=== PATIENT | female | born 1990 | race Caucasian/White ===

== ENCOUNTER 2017-12-25 17:58 | Inpatient (IN) | payer SELFPAY ==
[2017-12-25] MEDS ORDERED: NS 0.9% 1000 ML*IV.FLUID IV ONE (18:50)
--- NOTE | 2017-12-25 19:06 | ED ---
Abdominal Pain/Female - HPI Summary HPI Summary: The pt is a 27 y.o female presenting to the [facility] with a chief complaint of vomiting. The pt is accompanied by her /parents. Her parents report that the pt has vomited multiple times, fatigue, weakness, has intermittent tingling in her left leg, and, at times, numbness that makes her unable to walk. Pt has been taking ibuprofen and Tylenol in order to alleviate pain daily. Her parents state in the triage report that the pt has been unable to eat since () and that the pt fell out of bed causing bruising to the left side of the face. Pt has a pale appearance and the onset of the symptoms were reported to be days ago (Early 12/22/17). Symptoms alleviated by nothing and aggravated by nothing. She also complains of vague abdominal pain. - History of Current Complaint Chief Complaint: EDGeneral Stated Complaint: VOMITING, TINGLING IN LT LEG Time Seen by Provider: 12/25/17 18:15 Hx Obtained From: Patient Hx Last Menstrual Period: IMPLANON Onset/Duration: Gradual Onset, Lasting Days - Since 12/22/17, Still Present Timing: Constant Pain Intensity: 0 Pain Scale Used: 0-10 Numeric Aggravating Factor(s): Nothing Alleviating Factor(s): Nothing Associated Signs and Symptoms: Positive: Decreased Appetite, Vomiting, Other: - Tingling in the left leg; Numbness that makes her unable to walk Allergies/Adverse Reactions: Allergies Allergy/AdvReac Type Severity Reaction Status Date / Time penicillin G Allergy Vomiting Verified 12/25/17 18:31 Home Medications: Home Medications Lamictal 200 mg PO DAILY 12/25/17 [History Confirmed 12/25/17] PMH/Surg Hx/FS Hx/Imm Hx Endocrine/Hematology History: Reports: Hx Anemia Denies: Hx Diabetes, Hx Thyroid Disease Cardiovascular History: Denies: Hx Hypertension, Hx Pacemaker/ICD Respiratory History: Reports: Hx Asthma - Exercise Induced, Hx Chronic Bronchitis Denies: Hx Chronic Obstructive Pulmonary Disease (COPD) GI History: Reports: Hx Gastroesophageal Reflux Disease Denies: Hx Ulcer History: Reports: Hx Kidney Infection Musculoskeletal History: Reports: Hx Arthritis, Hx Back Problems Sensory History: Reports: Hx Contacts or Glasses Denies: Hx Hearing Aid Opthamlomology History: Reports: Hx Contacts or Glasses Neurological History: Reports: Hx Headaches, Hx Migraine, Other Neuro Impairments/Disorders - PAIN CLINIC PT Psychiatric History: Reports: Hx Anxiety, Hx Attention Deficit Hyperactivity Disorder, Hx Depression, Hx Post Traumatic Stress Disorder, Hx Bipolar Disorder , Hx Suicide Attempt, Hx of Violent Episodes Against Others Denies: Hx Panic Disorder - Surgical History Surgery Procedure, Year, and Place: CYST REMOVED FROM RT WRI[facility];. NEXPLANON ( [place]) MRI SAFE UPTO 3T PER 3FLOZ; Infectious Disease History: Yes Infectious Disease History: Denies: Hx Hepatitis, Hx Human Immunodeficiency Virus (HIV), Traveled Outside the [place] in Last 30 Days - Family History Known Family History: Positive: Cardiac Disease, Diabetes - Social History Alcohol Use: None Alcohol Amount: IN RECOVERY Substance Use Type: Reports: None Substance Use Comment - Amount & Last Used: hx heroin addiction Smoking Status (MU): Former Smoker Type: Cigarettes Amount Used/How Often: Using Nicotene Patch Length of Time of Smoking/Using Tobacco: 5 years Have You Smoked in the Last Year: Yes Review of Systems Constitutional: Other - Pale Positive: Fatigue Eyes: Negative ENT: Negative Cardiovascular: Negative Respiratory: Negative Positive: Abdominal Pain, Vomiting Musculoskeletal: Negative Positive: Bruising - Left side of the face Neurological: Other - Tingling in the left leg Positive: Weakness, Numbness Psychological: Normal All Other Systems Reviewed And Are Negative: Yes Physical Exam - Summary Physical Exam Summary: Appearance: The patient is well-nourished in no acute distress and in no acute pain. Skin: The skin is warm and dry and skin color reflects adequate perfusion. HEENT: The head is normocephalic and atraumatic. The conjunctivae are clear and without drainage. Nares are patent and without drainage. mucous membranes dry; Pupils are 1 mm bilaterally Neck: The neck is supple with full range of motion and non-tender. There are no carotid bruits. There is no neck vein distension. Respiratory: Chest is non-tender. Lungs are clear to auscultation and breath sounds are symmetrical and equal. Cardiovascular: Tachydcardic. There is no murmur or rub auscultated. Abdomen: The abdomen is soft and non-tender. There are normal bowel sounds heard in all four quadrants and there is no organomegaly palpated. Musculoskeletal: There is no back tenderness noted. Extremities are non-tender with full range of motion. There is good capillary refill. There is no peripheral edema or calf tenderness elicited. Neurological: Patient is alert and oriented to person, place and time. The patient has symmetrical motor strength in all four extremities. Cranial nerves are grossly intact. Deep tendon reflexes are symmetrical and equal in all four extremities. Psychiatric: The patient has an appropriate affect and does not exhibit any anxiety or depression. Triage Information Reviewed: Yes Vital Signs On Initial Exam: Initial Vitals Temp Pulse Resp BP Pulse Ox 95.8 F 0 16 100/56 0 12/25/17 17:59 12/25/17 17:59 12/25/17 17:59 12/25/17 17:59 12/25/17 17:59 Vital Signs Reviewed: Yes Diagnostics - Vital Signs Vital Signs Temp Pulse Resp BP Pulse Ox 12/25/17 18:38 18 117/76 12/25/17 18:14 24 12/25/17 17:59 95.8 F 0 16 100/56 0 - Laboratory Result Diagrams: 12/25/17 19:30 12/25/17 19:30 Lab Statement: Any lab studies that have been ordered have been reviewed, and results considered in the medical decision making process. - Radiology Chest X-ray Radiology Interpretation Completed By: ED Physician - Chest X-ray reveals no acute processes as per ED Physician Abdominal Pain Fem Course/Dx - Course Course Of Treatment: Ms. Dalton presented to the emergency department for complaint that she been vomiting essentially for about 36 hours. She also complained of some vague abdominal pain which started after the vomiting. She looked quite ill on presentation, she was tachycardic and pale. Her pressure was okay with a systolic over 100. She was afebrile. My initial consideration was that she was severely dehydrated. And she was given 30 cc/kg normal saline IV immediately. Labs are somewhat difficult to obtain pulmonary came back she was noted to have a lactic acid of 8 and a leukocytosis of 22. At that point vancomycin and cefepime were ordered for her as well as additional fluid. She did improve with the fluid and looked much better although she remained tachycardic. The more labs came back the more revealed that she had severe sepsis with elevated liver enzymes, elevated kidney function, hyponatremia and hyperkalemia. By that point Dr. Rdz was consulted and agreed to admit her to the ICU. She requested CT scan of her abdomen as well as lumbar spine. Immediately upon arrival back from CT I was called into the room and found the patient with a wide complex bradycardia on the monitor although her pulse was much faster and she was interactive. At one point she began to exhibit seizure- like activity and became unresponsive and an ABC alert was called at that point. CPR was initiated. She was given epi and atropine and regained a pulse. She continued to be unresponsive at that point and was intubated. She was given glucose and insulin for her hyperkalemia and transported to the intensive care unit. The CT scan revealed an ileus versus a small bowel obstruction. - Diagnoses Provider Diagnoses: Severe sepsis - Critical Care Time Critical Care Time: 30-74 min Discharge - Sign-Out/Discharge Documenting (check all that apply): Patient Departure - Discharge Plan Condition: Guarded Disposition: ADMITTED TO [facility] - Billing Disposition and Condition Condition: GUARDED Disposition: Admitted to [facility] - Attestation Statements Document Initiated by Scribe: Yes Documenting Scribe: Antony Cooper Provider For Whom Scribe is Documenting (Include Credential): Hunter Alvarez Scribe Attestation: Antony Carlos, scribed for Hunter Alvarez on 12/25/17 at 2254. Scribe Documentation Reviewed: Yes Provider Attestation: The documentation as recorded by the Antony casey accurately reflects the service I personally performed and the decisions made by Hunter hitchcock
[2017-12-25] MEDS ORDERED: Ondansetron INJ* 2 MG/ML VIAL IV ONE (19:25)
[2017-12-25 19:45] LABS: Hematocrit 45 % (35-47); Hemoglobin 14.7 g/dl (12.0-16.0); Mean Corpuscular HGB Conc 33 g/dl (31-36); Mean Corpuscular Hemoglobin 30 pg (27-31); Mean Corpuscular Volume 93 fL (80-97); Mean Platelet Volume 7.9 fL (7.4-10.4); Platelet Count 303 10^3/ul (150-450); Red Blood Count 4.85 10^6/ul (4.00-5.40); Red Cell Distribution Width 14 % (10.5-15); White Blood Count 24.1 10^3/ul (3.5-10.8)
[2017-12-25 19:50] LABS: INR 1.08 (0.77-1.02)
[2017-12-25 20:01] LABS: EGFR Non-African American 15.8 (>60)
[2017-12-25] MEDS ORDERED: Cefepime(*) 1 GM in NS 0.9% 50 ML* 50 ML IVPB ONE (20:07)
[2017-12-25] MEDS ORDERED: Vancomycin(*) 1,000 MG in NS 0.9% 250 ML* 250 ML IVPB ONE (20:07)
[2017-12-25 20:10] LABS: ABS Basophils 0 10^3/ul (0-0.2); ABS Eosinophils 0 10^3/ul (0-0.6); ABS Lymphocytes 1.5 10^3/ul (1.0-4.8); ABS Monocytes 1.4 10^3/ul (0-0.8); ABS Neutrophils 21.2 10^3/ul (1.5-7.7); ABS Nucleated RBC 0 10^3/ul; Eosinophil % 0 % (0-6); Lymphocyte % 6.2 % (25-47); Nucleated Red Blood Cells % 0.1
[2017-12-25] MEDS ORDERED: NS 0.9% 50 ML* 50 ML ONE (20:16)
--- NOTE | 2017-12-25 20:34 | ADMNOTE ---
Subjective Date of Service: 12/25/17 Interval History: code status full this is admission h/p info got from mom at bedside and partially from pt hpi this is a 27 yr old wf with hx of ivda with heroione but has been clean since 2016 just moved back from [facility] to or two months ago was brought in by family because of altered mental status. pt has been feeling sick since sat. was found to have intractable nausea vomiting and parents found her incoherent around 5 pm and decided to bring her in. pt was found very tachycardiac but sbp still holds around 100-110. she was very hypothermic/temporal temp was 95.2. initial wbc was 24 but her lactic acid was 8.2 creatinine was 3.4 ast 5000 alt 2400 trop was 3.2. pt got vanco and cefepime from er after rodriguez culture. pt c/o left leg pain and numbness/tingling unable to move the lle at all during exam. abd exam showed diffuse tenderness upon pressure. pt subsequently went for stat ct of abd/thoracic+ lumbar spine ---> after she came back from ct scan, pt was found to have worsening mental status change---> decreased pulse/bradycardiac -- -> got cpr for three min and intubation for airway protection. 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 phx hx of ivda with heroine was on subaxaone but last use of subaxone was 2015 brother stated that she had an episode of seizure in [facility] pshx none social no cig no etoh hx of illicit drug as above fhx htn/dm Review of Systems - Measurements Intake and Output: Intake and Output Last 24 Hours 12/23/17 12/24/17 12/25/17 12/26/17 06:59 06:59 06:59 06:59 Weight 115 lb - Review of Systems General Comments: ros pertient as per hpi Objective Active Medications: Cefepime HCl 1 gm/ Sodium (Chloride) 50 mls @ 100 mls/hr IVPB ED ONCE ONE Stop: 12/25/17 20:36 Vancomycin HCl 1,000 mg/ (Sodium Chloride) 250 mls @ 166.667 mls/hr IVPB ED ONCE ONE Stop: 12/25/17 21:36 Vital Signs - 8 hr 12/25/17 12/25/1712/25/18 17:59 18:14 18:38 Temperature 95.8 F Pulse Rate 0 Respiratory 16 24 18 Rate Blood Pressure 100/56 117/76 (mmHg) O2 Sat by Pulse 0 Oximetry 12/25/17 12/25/17 19:00 19:31 Temperature Pulse Rate 115 120 Respiratory 18 18 Rate Blood Pressure 105/73 (mmHg) O2 Sat by Pulse 93 97 Oximetry Oxygen Devices in Use Now: Mechanical Ventilator Appearance: intubated Eyes: No Scleral Icterus, PERRLA Ears/Nose/Mouth/Throat: - - oral mucosa dry poor dentation but no oral thrush Neck: NL Appearance and Movements; NL JVP, Trachea Midline, No Thyroid Enlargement, Masses Respiratory: Symmetrical Chest Expansion and Respiratory Effort, Clear to Auscultation Cardiovascular: NL Sounds; No Murmurs; No JVD, RRR, - - tachycardiac Abdominal: - - + bs soft diffuse tenderness upon pressure Extremities: No Edema, - - unable to raise lle left calf is firm Skin: - - cold to touch with dusky color seen on the plantar surface b/l foot erythematous demarcation skin change seen from the back of her left back thigh spreads towards her left calf Neurological: - - pt is aao times three prior but now is intubated and sedated Lines/Tubes/Other Access: Clean, Dry and Intact Endotracheal Tube, Clean, Dry and Intact Carter, Clean, Dry and Intact Naso-enteral Tube, Clean, Dry and Intact Other Access - central line Result Diagrams: 12/25/17 19:30 12/25/17 22:14 EKG Data: sinus tach with peak t wave Assess/Plan/Problems-Billing Assessment: 27 yr old wf with ivda hx but says has been clean since 2016 presented to er with abd pain/n/v/change of ms. pt was found to in septic shock with shock liver /kidney - Patient Problems (1) Severe sepsis Current Visit: Yes Status: Acute Code(s): A41.9 - SEPSIS, UNSPECIFIED ORGANISM; R65.20 - SEVERE SEPSIS WITHOUT SEPTIC SHOCK SNOMED Code(s): 95931174 Comment: presumably due to skin infection of the left thigh/left leg ivf fluid abx montier cbc and lactic trend echo in am (2) Lactic acidosis Current Visit: Yes Status: Acute Code(s): E87.2 - ACIDOSIS SNOMED Code(s) : 27886714 Comment: supportive care with ivf and abx recycle lactic acid (3) Shock liver Current Visit: Yes Status: Acute Code(s): K72.00 - ACUTE AND SUBACUTE HEPATIC FAILURE WITHOUT COMA SNOMED Code(s): 882575202 Comment: this could be due to transient hypotension prior to admission ammonia is elevated repeat lft has been coming down hepatitis panel sent (4) Acute renal failure Current Visit: Yes Status: Acute Comment: this could be due to transient hypotension prior to admission pt is severe hypovolumia ivf moniter input and output and lytes (5) Cardiac arrest Current Visit: Yes Status: Acute Code(s): I46.9 - CARDIAC ARREST, CAUSE UNSPECIFIED SNOMED Code(s): 639721114 Comment: pt got cpr for three min in the er because she lost her pulse now besides ivf on low dose pressors as well supportive care echo in am ordered (6) Cellulitis and abscess of left lower extremity Current Visit: Yes Status: Acute Code(s): L03.116 - CELLULITIS OF LEFT LOWER LIMB; L02.416 - CUTANEOUS ABSCESS OF LEFT LOWER LIMB SNOMED Code(s): 124337151 Comment: vanco and cefepime (7) Electrolyte abnormality Current Visit: Yes Status: Acute Code(s): E87.8 - OTH DISORDERS OF ELECTROLYTE AND FLUID BALANCE, NEC SNOMED Code(s): 994272715 (8) Seizure Current Visit: Yes Status: Acute Code(s): R56.9 - UNSPECIFIED CONVULSIONS SNOMED Code(s): 21853552 Comment: parents did not know that she had seizures in [facility] but brother told icu nursing staff tiara ordered as per icu dr (9) Electrolyte abnormality Current Visit: Yes Status: Acute Code(s): E87.8 - OTH DISORDERS OF ELECTROLYTE AND FLUID BALANCE, NEC SNOMED Code(s): 972699857 Comment: repeat k is better calcium is low but calcium cl given from er moniter ck ionized calcium in am (10) Abdominal pain Current Visit: Yes Status: Acute Code(s): R10.9 - UNSPECIFIED ABDOMINAL PAIN SNOMED Code(s): 59224691 Comment: pt had blood tinged vomitus drained out ct of abd + early obstruction ng suction protonix drip started (11) Calf tenderness Current Visit: Yes Status: Acute Code(s): M79.669 - PAIN IN UNSPECIFIED LOWER LEG SNOMED Code(s): 009965627 Comment: pt's calf is very firm needs to r/o compartment syndrome sono to be ordered in am to eval (12) History of heroin use Current Visit: Yes Status: Acute Code(s): Z86.59 - PERSONAL HISTORY OF OTHER MENTAL AND BEHAVIORAL DISORDERS SNOMED Code(s): 588365698 Comment: urine toxin ---> + opoid Status and Disposition: ct scan of abd showed early obstruction ---> has melenous drainage out ng placed protonix drip ordered
[2017-12-25] MEDS ORDERED: NS 0.9% 1000 ML* 1,000 ML IV ONE (20:40)
[2017-12-25] MEDS ORDERED: NS 0.9% 1000 ML* 1,000 ML IV SCH (21:15)
[2017-12-25] MEDS ORDERED: Ondansetron INJ* 2 MG/ML VIAL IV PRN (21:18)
[2017-12-25] MEDS ORDERED: Succinylcholine* 20 MG/ML 10 ML VIAL ONE (21:28)
[2017-12-25] MEDS ORDERED: MIDAZOLAM ONE (21:28)
[2017-12-25] MEDS ORDERED: Sodium Bicarbonate 8.4% SYR* 10 ML SYRINGE ONE (21:28)
[2017-12-25] MEDS ORDERED: Vancomycin per Pharmacy* NOTE FOLLOW UP PRN (21:28)
[2017-12-25] MEDS ORDERED: Calcium CHLORIDE 10% SYRINGE* 1 GM/10 ML ONE (21:28)
[2017-12-25] MEDS ORDERED: Dextrose 50% Syringe 50 ML* 25 GM/50 ML SYRINGE ONE (21:28)
[2017-12-25] MEDS ORDERED: EPINEPHrine SYR 0.1MG/ML* SYRINGE ONE (21:28)
[2017-12-25] MEDS ORDERED: Norepinephrine VIAL* 1 MG/ML 4 ML VIAL ONE (21:28)
[2017-12-25] MEDS ORDERED: Midazolam* 1 MG/ML 10 ML VIAL (10 MG) ONE (21:32)
[2017-12-25] MEDS ORDERED: Insulin REGULAR(*) 1 UNITS UNIT ONE (21:46)
[2017-12-25] MEDS ORDERED: Propofol* 100 ML ONE (21:52)
[2017-12-25] MEDS ORDERED: Pantoprazole IV* 40 MG IV ONE (21:57)
[2017-12-25] MEDS ORDERED: Pantoprazole IV* 40 MG IV STA (21:59)
[2017-12-25] MEDS ORDERED: Vancomycin(*) 500 MG in NS 0.9% 250 ML* 250 ML IVPB SCH (22:00)
[2017-12-25] MEDS ORDERED: Pantoprazole IV* 40 MG IV SCH ×2 (22:00→23:00)
[2017-12-25] MEDS ORDERED: Cefepime 1 GM in Dextrose(*) 1 GM/50 ML BAG IV SCH (22:00)
--- NOTE | 2017-12-25 22:01 | ED ---
Progress - Progress Note Progress Note: Patient was crashing, in the middle of the ABC code alert, patient had only 1 peripheral IV access, central line needed for pressors. Central line was placed by Dr. Valentino under emergent condition. Right femoral central line, triple lumen , sterile drapes applied, no anesthesia, no complications. Course/Dx - Course Course Of Treatment: Patient was crashing, in the middle of the ABC code alert, patient had only 1 peripheral IV access, central line needed for pressors. Central line was placed by Dr. Valentino under emergent condition. Right femoral central line, triple lumen, sterile drapes applied, no anesthesia, no complications. - Diagnoses Provider Diagnoses: Severe sepsis During the Visit The Following Alert/Code Occurred: ABC Alert Discharge - Sign-Out/Discharge Documenting (check all that apply): Patient Departure - admit - Discharge Plan Condition: Guarded Disposition: ADMITTED TO [facility] - Attestation Statements Document Initiated by Scribe: Yes Documenting Scribe: ESTELITA BENSON Provider For Whom Scribe is Documenting (Include Credential): MARGIE VALENTINO MD Scribe Attestation: IESTELITA , scribed for MARGIE VALENTINO MD on 12/25/17 at 2304. Procedures - Central Line Right Femoral Central Line Lumen: triple Central Line Procedure: sterile drapes applied Central Line Position: femoral (R) Anesthesia: none Complications: none
[2017-12-25] MEDS ORDERED: levETIRAcetam IV* 500 MG/5 ML VIAL ONE (22:29)
[2017-12-25] MEDS ORDERED: ACETYLCYSTEINE IVPB ONE (22:30)
[2017-12-25] MEDS ORDERED: D5W IVPB ONE (22:30)
[2017-12-25] MEDS ORDERED: NS 0.9% 1000 ML* 2,000 ML IV ONE (22:36)
[2017-12-25] MEDS ORDERED: Calcium Gluconate INJ* 1 GM in NS 0.9% 50 ML* 50 ML IVPB ONE (22:37)
[2017-12-25 22:38] LABS: Platelet Count 194 10^3/ul (150-450)
[2017-12-25] MEDS ORDERED: Dextrose 50% Syringe 50 ML* 25 GM/50 ML SYRINGE IV PUSH ONE (22:38)
[2017-12-25] MEDS ORDERED: Insulin REGULAR(*) 1 UNITS UNIT IV PUSH ONE (22:38)
[2017-12-25] MEDS ORDERED: Sodium Bicarbonate 8.4%* 50 ML SYRINGE IV ONE (22:39)
[2017-12-25 22:43] LABS: INR 1.26 (0.77-1.02)
[2017-12-25 22:48] LABS: Schistocytes ABSENT
[2017-12-25 22:50] LABS: EGFR Non-African American 18.7 (>60)
[2017-12-25] MEDS ORDERED: levETIRAcetam IV* 1,000 MG in NS 0.9% 100 ML* 100 ML IVPB ONE (23:00)
[2017-12-25] MEDS ORDERED: metroNIDAZOLE IV 500 MG/100ML* 500 MG/100 ML BAG IVPB SCH (23:00)
[2017-12-25] MEDS ORDERED: Pantoprazole* 80 mg IN NS 80 MG/250 ML BAG IVPB SCH (23:00)
[2017-12-25 23:49] LABS: Urine Appearance Cloudy; Urine Blood 3+ (Negative); Urine Color Amber; Urine Ketones Negative (Negative); Urine Protein 2+(100 mg/dL) (Negative); Urine Red Blood Cell 2+(6-10/hpf) (Absent); Urine Specific Gravity 1.018 (1.010-1.030); Urine Urobilinogen Negative (Negative); Urine White Blood Cell 3+(>20/hpf) (Absent)
[2017-12-26] MEDS ORDERED: Aztreonam (*) 1 GM in NS 0.9% 50 ML* 50 ML IVPB SCH ×2
--- NOTE | 2017-12-26 00:02 | CONSULT ---
Consult Consult: PCCM Consult CC: cardiac arrest HPI: 27F with h/o of prior drug abuse on suboxone, sober for 2 years, presents with abdominal pain and vomiting. The patient had vomiting multiple times. Symptoms started over the past several days. She also had intermittent tingling and weakness of her left leg that made it difficult to walk. The patient had been taking tylenol and motrin for the pain. She came to the ER and was found to be in acute renal failure, shock liver, and had severe lactic acidosis. The patient became unresponisve and possible had an asystole arrest. The patient was also reported to have a seizure. CPR was performed for [address] scan of the abdomen showed possible early or partial small bowel obstruction. She was intubated and transferred to the ICU. ROS - unable 2/2 intubation and sedation PMHx - h/o drug abuse PSHx - cyst removal, nexplanon control implant All - penicillin SocHx - former drug abuse FamHx - hear disease, dm PE Vital Signs: Temp Pulse Resp BP Pulse Ox 97.0 F 142 11 119/76 100 12/25/17 23:15 12/25/17 23:15 12/25/17 23:06 12/25/17 23:15 12/25/17 23:15 Gen - intubated and sedated Heent - ncat, peerl neck - no jvd cv - s1/s2, tachy lungs - cta, no wheeze abd - soft, nt ext - LLE swollen with erythema, +pulse neuro - unresponsive Labs Laboratory Results - last 24 hr 12/25/17 12/25/17 12/25/17 19:30 19:30 19:30 WBC 24.1 H RBC 4.85 Hgb 14.7 Hct 45 MCV 93 MCH 30 MCHC 33 RDW 14 Plt Count 303 MPV 7.9 Neut % (Auto) 88.0 H Lymph % (Auto) 6.2 L Cochran % (Auto) 5.7 Eos % (Auto) 0 Baso % (Auto) 0.1 Absolute Neuts (auto) 21.2 H Absolute Lymphs (auto) 1.5 Absolute Monos (auto) 1.4 H Absolute Eos (auto) 0 Absolute Basos (auto) 0 Absolute Nucleated RBC 0 Nucleated RBC % 0.1 Schistocytes INR (Anticoag Therapy) 1.08 H APTT Fibrinogen D-Dimer, Quantitative Patient Temperature ABG pH ABG pH (Temp Correct) ABG pCO2 ABG pCO2 (Temp Corrct ABG pO2 ABG pO2 (Temp Correct ABG HCO3 ABG O2 Saturation ABG Base Excess Respiration Rate O2 Delivery Device Ventilator Type Vent Mode FiO2 Inspiratory Time PEEP Pressure Support Pressure Control EPAP IPAP BiPAP Sodium 125 L Potassium 6.9 H* Chloride 91 L Carbon Dioxide 24 Anion Gap 10 BUN 40 H Creatinine 3.46 H Est GFR ( Amer) 19.1 Est GFR (Non-Af Amer) 15.8 BUN/Creatinine Ratio 11.6 Glucose 202 H Lactic Acid Calcium 5.5 L* Phosphorus Magnesium Total Bilirubin 0.20 Direct Bilirubin Indirect Bilirubin AST 5223 H ALT 2483 H Alkaline Phosphatase 81 Ammonia Troponin I 3.55 H* C-Reactive Protein 142.22 H Total Protein 6.3 L Albumin 3.8 Globulin 2.5 Albumin/Globulin Ratio 1.5 Cortisol Acetaminophen 12/25/17 12/25/17 12/25/17 19:30 22:14 22:14 WBC RBC Hgb Hct MCV MCH MCHC RDW Plt Count MPV Neut % (Auto) Lymph % (Auto) Cochran % (Auto) Eos % (Auto) Baso % (Auto) Absolute Neuts (auto) Absolute Lymphs (auto) Absolute Monos (auto) Absolute Eos (auto) Absolute Basos (auto) Absolute Nucleated RBC Nucleated RBC % Schistocytes INR (Anticoag Therapy) APTT Fibrinogen D-Dimer, Quantitative Patient Temperature ABG pH ABG pH (Temp Correct) ABG pCO2 ABG pCO2 (Temp Corrct ABG pO2 ABG pO2 (Temp Correct ABG HCO3 ABG O2 Saturation ABG Base Excess Respiration Rate O2 Delivery Device Ventilator Type Vent Mode FiO2 Inspiratory Time PEEP Pressure Support Pressure Control EPAP IPAP BiPAP Sodium 130 L Potassium 5.1 H D Chloride 99 L Carbon Dioxide 20 L Anion Gap 11 BUN 41 H Creatinine 2.98 H Est GFR ( Amer) 22.7 Est GFR (Non-Af Amer) 18.7 BUN/Creatinine Ratio 13.8 Glucose 296 H Lactic Acid 8.6 H* 8.1 H* Calcium 5.8 L* Phosphorus 10.5 H Magnesium 2.2 Total Bilirubin 0.20 Direct Bilirubin 0.00 L Indirect Bilirubin Log Washer AST 3418 H ALT 1544 H Alkaline Phosphatase 51 Ammonia Troponin I 2.74 H* C-Reactive Protein Total Protein 3.7 L Albumin 2.2 L Globulin 1.5 L Albumin/Globulin Ratio 1.5 Cortisol > 61.40 Acetaminophen < 15 12/25/17 12/25/17 12/25/17 22:14 22:14 22:35 WBC RBC Hgb Hct MCV MCH MCHC RDW Plt Count 194 MPV Neut % (Auto) Lymph % (Auto) Cochran % (Auto) Eos % (Auto) Baso % (Auto) Absolute Neuts (auto) Absolute Lymphs (auto) Absolute Monos (auto) Absolute Eos (auto) Absolute Basos (auto) Absolute Nucleated RBC Nucleated RBC % Schistocytes Absent INR (Anticoag Therapy) 1.26 H APTT 38.8 H Fibrinogen 209.5 D-Dimer, Quantitative > 1050 H Patient Temperature Not Reportable ABG pH 7.14 L* ABG pH (Temp Correct) Not Reportable ABG pCO2 35 ABG pCO2 (Temp Corrct Not Reportable ABG pO2 257 H ABG pO2 (Temp Correct Not Reportable ABG HCO3 12.3 L ABG O2 Saturation 99.2 H ABG Base Excess -16.1 L Respiration Rate 16 O2 Delivery Device Ventilator Ventilator Type 450 Vent Mode Ac FiO2 100 Inspiratory Time 1.0 PEEP 5 Pressure Support Not Reportable Pressure Control Not Reportable EPAP Not Reportable IPAP Not Reportable BiPAP Not Reportable Sodium Potassium Chloride Carbon Dioxide Anion Gap BUN Creatinine Est GFR ( Amer) Est GFR (Non-Af Amer) BUN/Creatinine Ratio Glucose Lactic Acid Calcium Phosphorus Magnesium Total Bilirubin Direct Bilirubin Indirect Bilirubin AST ALT Alkaline Phosphatase Ammonia 109 H Troponin I C-Reactive Protein Total Protein Albumin Globulin Albumin/Globulin Ratio Cortisol Acetaminophen Imaging CT abd/pel 12/25 IMPRESSION: 1. Early or partial small bowel obstruction with transition in the right lower quadrant. No perforation or ischemia. 2. Left thigh edema with etiologies including DVT, diffuse myositis, and post traumatic. 3. Bilateral nonobstructing renal calculi. Lumbar CT 12/25 IMPRESSION: Normal noncontrast lumbar spine CT Thoracic CT 12/25 IMPRESSION: Normal noncontrast thoracic spine CT. Brain CT 12/25 IMPRESSION: Normal noncontrast head CT. Impression 27F with h/o substance abuse presents with multiorgan system failure. SBO? Left Leg cellulitis vs DVT. Cardiac Arrest. Seizure. Acute Renal failure, hyperkalemia. Shock Liver. Plan Neuro - ams, seizure - multifactorial - check utox - ct head negative - empiric keppra - sedation with propofol CV - cardiac arrest - 2/2 hyperkalemia - check tte - not VT/VF and moving extremities after arrest - not a candidate for hypothermia - supportive care Pulm - respiratory failure - 2/2 cardiac arrest - wean vent as tolerated ID - severe sepsis - 2/2 LLE cellulitis? - vanc/aztreonam/clinda - f/u cultures - serial lactates - iv hydration GI - SBO? Shock liver 1.) SBO - no history of abdominal surgery - ogt to wall suction - iv hydration - npo - Discussed case with Dr. Beltran from surgery via telephone who does not feel OR is indicated at this time. She will see patient in AM. 2.) Shock liver - 2/2 sepsis vs acetaminophen - check apap level - empiric mucomyst - check ruq sono Renal - junior, hyperkalemia - 2/2 sepsis/atn - monitor i/o - monitor lytes - insulin/d50/calcium for elevated k - iv hydration Heme - LLE swelling - LE doppler to r/o DVT - hold off on ac for now Endo - check tsh/ft4 - check fs Lines - R Fem TLC, piv, light PPx - gi/dvt Full Code Admit to ICU Discussed case with patients sister at bedside. Critical Care Time: 100 mins
[2017-12-26] MEDS: Clindamycin 600 MG IVPREMIX(* 600 MG/50 ML SDV IV SCH ×2 (00:07→06:10)
--- NOTE | 2017-12-26 00:10 | PRO ---
ADDENDUM NOW INCLUDED ON THIS REPORT DATE OF SERVICE: 12/25/17 - ROOM #ICU-03 PROCEDURE: Emergent intubation. PREPROCEDURE DIAGNOSES: 1. Apnea. 2. Cardiac arrest. POSTPROCEDURE DIAGNOSES: 1. Apnea. 2. Cardiac arrest. PROCEDURE IN DETAIL: Responded to ABC alert in the emergency room, room 3. Asked for assistance managing the airway by ED physician, Jony Alvarez. GlideScope was used. The patient had already received preprocedure induction medications per the ED physician. GlideScope MAC 3 blade was used along with 7.5 endotracheal tube was passed easily through the cords with full visualization on the GlideScope. The ET tube was advanced to 23 at the lips. The patient was then ventilated to 98% oxygen saturation. There was appropriate color change on end tidal CO2 detector. ADDENDUM: There was direct visualization of the tube passing through the cords. In addition, there were bilateral breath sounds, adequate chest rise and proper color change on the end tidal CO2 detector with improvement of the patient's oxygen saturation. [id number]/[facility]PS #: [id number] A- [id number]/CPS #: [id number] LUZ ELENA
--- NOTE | 2017-12-26 00:10 | PM ---
PAIN MANAGEMENT NOTE: ADDENDUM: There was direct visualization of the tube passing through the cords. In addition, there were bilateral breath sounds, adequate chest rise and proper color change on the end tidal CO2 detector with improvement of the patient's oxygen saturation. [id number]/[facility] #: [id number] MTDD
[2017-12-26] MEDS ORDERED: LORazepam INJ* 2 MG/ML 1 ML VIAL IV PUSH PRN (00:13)
[2017-12-26] MEDS ORDERED: NS 0.9% 1000 ML* 1,000 ML IV SCH (00:15)
[2017-12-26] MEDS: Propofol* 100 ML IV SCH ×2 (01:58→05:38)
[2017-12-26] MEDS ORDERED: Calcium Gluconate INJ* 1 GM in NS 0.9% 50 ML* 50 ML IV ONE (02:00)
[2017-12-26 04:29] LABS: Hematocrit 37 % (35-47); Hemoglobin 12.4 g/dl (12.0-16.0); Mean Corpuscular HGB Conc 34 g/dl (31-36); Mean Corpuscular Hemoglobin 31 pg (27-31); Mean Corpuscular Volume 92 fL (80-97); Platelet Count 157 10^3/ul (150-450); Red Blood Count 4.01 10^6/ul (4.00-5.40); Red Cell Distribution Width 14 % (10.5-15); White Blood Count 7.7 10^3/ul (3.5-10.8)
[2017-12-26 04:36] LABS: INR 1.35 (0.77-1.02)
[2017-12-26 04:45] LABS: EGFR Non-African American 19.2 (>60)
[2017-12-26 04:46] LABS: ABS Basophils 0 10^3/ul (0-0.2); ABS Eosinophils 0 10^3/ul (0-0.6); ABS Lymphocytes 0.8 10^3/ul (1.0-4.8); ABS Monocytes 0.3 10^3/ul (0-0.8); ABS Neutrophils 6.5 10^3/ul (1.5-7.7); ABS Nucleated RBC 0 10^3/ul; Eosinophil % 0.1 % (0-6); Lymphocyte % 10.8 % (25-47); Nucleated Red Blood Cells % 0.1
[2017-12-26] MEDS ORDERED: NS 0.9% 1000 ML* 2,000 ML IV ONE ×2 (05:45→07:24)
[2017-12-26] MEDS ORDERED: Calcium Gluconate INJ* 2 GM in NS 0.9% 100 ML* 100 ML IV ONE (06:00)
[2017-12-26] MEDS ORDERED: Sodium Bicarbonate 8.4%* 50 ML SYRINGE IV ONE ×2 (06:00→07:58)
[2017-12-26] MEDS ORDERED: Insulin REGULAR(*) 1 UNITS UNIT IV PUSH ONE ×2 (06:00→07:58)
[2017-12-26] MEDS ORDERED: levETIRAcetam IV* 500 MG in NS 0.9% 100 ML* 100 ML IVPB SCH (06:00)
[2017-12-26] MEDS ORDERED: levETIRAcetam 500 MG IVPREMIX* 500 MG/100 ML BAG IV SCH (06:00)
[2017-12-26] MEDS ORDERED: Dextrose 50% Syringe 50 ML* 25 GM/50 ML SYRINGE IV PUSH ONE (06:00)
[2017-12-26] MEDS ORDERED: Dextrose 50% Syringe 50 ML* 25 GM/50 ML SYRINGE IV PUSH PRN (07:58)
--- NOTE | 2017-12-26 07:58 | DS ---
Discharge Summary Date of Admission: 12/25/17 Date of Discharge: 12/26/17 Admitting Diagnosis: Acute renal failure (Acute) Discharge Diagnosis: Abdominal pain (Acute) R10.9 Acute renal failure (Acute) Calf tenderness (Acute) M79.669 Cardiac arrest (Acute) I46.9 Cellulitis and abscess of left lower extremity (Acute) L03.116, L02.416 Electrolyte abnormality (Acute) E87.8 History of heroin use (Acute) Z86.59 Lactic acidosis (Acute) E87.2 Seizure (Acute) R56.9 Sepsis (Acute) Severe sepsis (Acute) A41.9, R65.20 Shock liver (Acute) K72.00 Procedures: None Consultations: Surgery (Dr. 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 pt has been feeling sick since sat. was found to have intractable nausea vomiting and parents found her incoherent around 5 pm and decided to bring her in. pt was found very tachycardiac but sbp still holds around 100-110. she was very hypothermic/temporal temp was 95.2. initial wbc was 24 but her lactic acid was 8.2 creatinine was 3.4 ast 5000 alt 2400 trop was 3.2. pt got vanco and cefepime from er after rodriguez culture. pt c/o left leg pain and numbness/tingling unable to move the lle at all during exam. abd exam showed diffuse tenderness upon pressure. pt subsequently went for stat ct of abd/thoracic+ lumbar spine ---> after she came back from ct scan, pt was found to have worsening mental status change---> decreased pulse/bradycardiac -- -> got cpr for three min and intubation for airway protection. ICU attending fabrication specialist was called due to her overall complicated ongoing medical problems including shock liver and shock kidney. Initial Lab Work Laboratory Results - last 24 hr 12/25/17 12/25/17 12/25/17 19:30 19:30 19:30 WBC 24.1 H RBC 4.85 Hgb 14.7 Hct 45 MCV 93 MCH 30 MCHC 33 RDW 14 Plt Count 303 MPV 7.9 Neut % (Auto) 88.0 H Lymph % (Auto) 6.2 L [place] % (Auto) 5.7 Eos % (Auto) 0 Baso % (Auto) 0.1 Absolute Neuts (auto) 21.2 H Absolute Lymphs (auto) 1.5 Absolute Monos (auto) 1.4 H Absolute Eos (auto) 0 Absolute Basos (auto) 0 Absolute Nucleated RBC 0 Nucleated RBC % 0.1 Schistocytes INR (Anticoag Therapy) 1.08 H APTT Fibrinogen D-Dimer, Quantitative Patient Temperature ABG pH ABG pH (Temp Correct) ABG pCO2 ABG pCO2 (Temp Corrct ABG pO2 ABG pO2 (Temp Correct ABG HCO3 ABG O2 Saturation ABG Base Excess Respiration Rate O2 Delivery Device Ventilator Type Vent Mode FiO2 Inspiratory Time PEEP Pressure Support Pressure Control EPAP IPAP BiPAP Sodium 125 L Potassium 6.9 H* Chloride 91 L Carbon Dioxide 24 Anion Gap 10 BUN 40 H Creatinine 3.46 H Est GFR ( Amer) 19.1 Est GFR (Non-Af Amer) 15.8 BUN/Creatinine Ratio 11.6 Glucose 202 H Lactic Acid Calcium 5.5 L* Ionized Calcium Phosphorus Magnesium Total Bilirubin 0.20 Direct Bilirubin Indirect Bilirubin AST 5223 H ALT 2483 H Alkaline Phosphatase 81 Ammonia Total Creatine Kinase CK-MB (CK-2) Troponin I 3.55 H* C-Reactive Protein 142.22 H Total Protein 6.3 L Albumin 3.8 Globulin 2.5 Albumin/Globulin Ratio 1.5 TSH Free T4 Beta HCG, Quant Cancelled Cortisol Urine Color Urine Appearance Urine pH Ur Specific [place] Urine Protein Urine Ketones Urine Blood Urine Nitrate Urine Bilirubin Urine Urobilinogen Ur Leukocyte Esterase Urine WBC (Auto) Urine RBC (Auto) Ur Squamous Epith Cells Amorphous Crystals Urine Bacteria Hyaline Casts Urine Glucose Urine Ascorbic Acid Urine Opiates Screen Acetaminophen Ur Barbiturates Screen Ur Phencyclidine Scrn Ur Amphetamines Screen U Benzodiazepines Scrn Urine Cocaine Screen U Cannabinoids Screen 12/25/17 12/25/17 12/25/17 19:30 22:14 22:14 WBC RBC Hgb Hct MCV MCH MCHC RDW Plt Count MPV Neut % (Auto) Lymph % (Auto) [place] % (Auto) Eos % (Auto) Baso % (Auto) Absolute Neuts (auto) Absolute Lymphs (auto) Absolute Monos (auto) Absolute Eos (auto) Absolute Basos (auto) Absolute Nucleated RBC Nucleated RBC % Schistocytes INR (Anticoag Therapy) APTT Fibrinogen D-Dimer, Quantitative Patient Temperature ABG pH ABG pH (Temp Correct) ABG pCO2 ABG pCO2 (Temp Corrct ABG pO2 ABG pO2 (Temp Correct ABG HCO3 ABG O2 Saturation ABG Base Excess Respiration Rate O2 Delivery Device Ventilator Type Vent Mode FiO2 Inspiratory Time PEEP Pressure Support Pressure Control EPAP IPAP BiPAP Sodium 130 L Potassium 5.1 H D Chloride 99 L Carbon Dioxide 20 L Anion Gap 11 BUN 41 H Creatinine 2.98 H Est GFR ( Amer) 22.7 Est GFR (Non-Af Amer) 18.7 BUN/Creatinine Ratio 13.8 Glucose 296 H Lactic Acid 8.6 H* 8.1 H* Calcium 5.8 L* Ionized Calcium Phosphorus 10.5 H Magnesium 2.2 Total Bilirubin 0.20 Direct Bilirubin 0.00 L Indirect Bilirubin Scenic Artist AST 3418 H ALT 1544 H Alkaline Phosphatase 51 Ammonia Total Creatine Kinase 36614 H CK-MB (CK-2) > 298.0 H Troponin I 2.74 H* C-Reactive Protein Total Protein 3.7 L Albumin 2.2 L Globulin 1.5 L Albumin/Globulin Ratio 1.5 TSH Free T4 Beta HCG, Quant < 0.60 Cortisol > 61.40 Urine Color Urine Appearance Urine pH Ur Specific [place] Urine Protein Urine Ketones Urine Blood Urine Nitrate Urine Bilirubin Urine Urobilinogen Ur Leukocyte Esterase Urine WBC (Auto) Urine RBC (Auto) Ur Squamous Epith Cells Amorphous Crystals Urine Bacteria Hyaline Casts Urine Glucose Urine Ascorbic Acid Urine Opiates Screen Acetaminophen < 15 Ur Barbiturates Screen Ur Phencyclidine Scrn Ur Amphetamines Screen U Benzodiazepines Scrn Urine Cocaine Screen U Cannabinoids Screen 12/25/17 12/25/17 12/25/17 22:14 22:14 22:35 WBC RBC Hgb Hct MCV MCH MCHC RDW Plt Count 194 MPV Neut % (Auto) Lymph % (Auto) [place] % (Auto) Eos % (Auto) Baso % (Auto) Absolute Neuts (auto) Absolute Lymphs (auto) Absolute Monos (auto) Absolute Eos (auto) Absolute Basos (auto) Absolute Nucleated RBC Nucleated RBC % Schistocytes Absent INR (Anticoag Therapy) 1.26 H APTT 38.8 H Fibrinogen 209.5 D-Dimer, Quantitative > 1050 H Patient Temperature Not Reportable ABG pH 7.14 L* ABG pH (Temp Correct) Not Reportable ABG pCO2 35 ABG pCO2 (Temp Corrct Not Reportable ABG pO2 257 H ABG pO2 (Temp Correct Not Reportable ABG HCO3 12.3 L ABG O2 Saturation 99.2 H ABG Base Excess -16.1 L Respiration Rate 16 O2 Delivery Device Ventilator Ventilator Type 450 Vent Mode Ac FiO2 100 Inspiratory Time 1.0 PEEP 5 Pressure Support Not Reportable Pressure Control Not Reportable EPAP Not Reportable IPAP Not Reportable BiPAP Not Reportable Sodium Potassium Chloride Carbon Dioxide Anion Gap BUN Creatinine Est GFR ( Amer) Est GFR (Non-Af Amer) BUN/Creatinine Ratio Glucose Lactic Acid Calcium Ionized Calcium Phosphorus Magnesium Total Bilirubin Direct Bilirubin Indirect Bilirubin AST ALT Alkaline Phosphatase Ammonia 109 H Total Creatine Kinase CK-MB (CK-2) Troponin I C-Reactive Protein Total Protein Albumin Globulin Albumin/Globulin Ratio TSH Free T4 Beta HCG, Quant Cortisol Urine Color Urine Appearance Urine pH Ur Specific [place] Urine Protein Urine Ketones Urine Blood Urine Nitrate Urine Bilirubin Urine Urobilinogen Ur Leukocyte Esterase Urine WBC (Auto) Urine RBC (Auto) Ur Squamous Epith Cells Amorphous Crystals Urine Bacteria Hyaline Casts Urine Glucose Urine Ascorbic Acid Urine Opiates Screen Acetaminophen Ur Barbiturates Screen Ur Phencyclidine Scrn Ur Amphetamines Screen U Benzodiazepines Scrn Urine Cocaine Screen U Cannabinoids Screen 12/25/17 12/25/17 12/26/17 22:50 22:50 00:51 WBC RBC Hgb Hct MCV MCH MCHC RDW Plt Count MPV Neut % (Auto) Lymph % (Auto) [place] % (Auto) Eos % (Auto) Baso % (Auto) Absolute Neuts (auto) Absolute Lymphs (auto) Absolute Monos (auto) Absolute Eos (auto) Absolute Basos (auto) Absolute Nucleated RBC Nucleated RBC % Schistocytes INR (Anticoag Therapy) APTT Fibrinogen D-Dimer, Quantitative Patient Temperature ABG pH ABG pH (Temp Correct) ABG pCO2 ABG pCO2 (Temp Corrct ABG pO2 ABG pO2 (Temp Correct ABG HCO3 ABG O2 Saturation ABG Base Excess Respiration Rate O2 Delivery Device Ventilator Type Vent Mode FiO2 Inspiratory Time PEEP Pressure Support Pressure Control EPAP IPAP BiPAP Sodium Potassium Chloride Carbon Dioxide Anion Gap BUN Creatinine Est GFR ( Amer) Est GFR (Non-Af Amer) BUN/Creatinine Ratio Glucose Lactic Acid Calcium Ionized Calcium 2.49 L* Phosphorus Magnesium Total Bilirubin Direct Bilirubin Indirect Bilirubin AST ALT Alkaline Phosphatase Ammonia Total Creatine Kinase CK-MB (CK-2) Troponin I C-Reactive Protein Total Protein Albumin Globulin Albumin/Globulin Ratio TSH Free T4 Beta HCG, Quant Cortisol Urine Color [place] Urine Appearance Cloudy Urine pH 5.0 Ur Specific [place] 1.018 Urine Protein 2+(100 mg/dl) A Urine Ketones Negative Urine Blood 3+ A Urine Nitrate Negative Urine Bilirubin Negative Urine Urobilinogen Negative Ur Leukocyte Esterase Negative Urine WBC (Auto) 3+(>20/hpf) A Urine RBC (Auto) 2+(6-10/hpf) A Ur Squamous Epith Cells Present A Amorphous Crystals Present A Urine Bacteria 1+ A Hyaline Casts Present A Urine Glucose Negative Urine Ascorbic Acid * A Urine Opiates Screen Presumptive positive A Acetaminophen Ur Barbiturates Screen None detected Ur Phencyclidine Scrn None detected Ur Amphetamines Screen None detected U Benzodiazepines Scrn None detected Urine Cocaine Screen None detected U Cannabinoids Screen None detected 12/26/17 12/26/17 12/26/17 01:00 04:15 04:15 WBC RBC Hgb Hct MCV MCH MCHC RDW Plt Count MPV Neut % (Auto) Lymph % (Auto) [place] % (Auto) Eos % (Auto) Baso % (Auto) Absolute Neuts (auto) Absolute Lymphs (auto) Absolute Monos (auto) Absolute Eos (auto) Absolute Basos (auto) Absolute Nucleated RBC Nucleated RBC % Schistocytes INR (Anticoag Therapy) 1.35 H APTT 37.0 H Fibrinogen D-Dimer, Quantitative Patient Temperature Not Reportable ABG pH 7.20 L ABG pH (Temp Correct) Not Reportable ABG pCO2 30 L ABG pCO2 (Temp Corrct Not Reportable ABG pO2 197 H ABG pO2 (Temp Correct Not Reportable ABG HCO3 13.2 L ABG O2 Saturation 99.6 H ABG Base Excess -15.0 L Respiration Rate 16 O2 Delivery Device Vent Ventilator Type 450 Vent Mode cmv FiO2 100 Inspiratory Time 0.8 PEEP 5 Pressure Support Not Reportable Pressure Control Not Reportable EPAP Not Reportable IPAP Not Reportable BiPAP Not Reportable Sodium Potassium Chloride Carbon Dioxide Anion Gap BUN Creatinine Est GFR ( Amer) Est GFR (Non-Af Amer) BUN/Creatinine Ratio Glucose Lactic Acid Calcium Ionized Calcium Phosphorus Magnesium Total Bilirubin Direct Bilirubin Indirect Bilirubin AST ALT Alkaline Phosphatase Ammonia 104 H Total Creatine Kinase CK-MB (CK-2) Troponin I C-Reactive Protein Total Protein Albumin Globulin Albumin/Globulin Ratio TSH Free T4 Beta HCG, Quant Cortisol Urine Color Urine Appearance Urine pH Ur Specific [place] Urine Protein Urine Ketones Urine Blood Urine Nitrate Urine Bilirubin Urine Urobilinogen Ur Leukocyte Esterase Urine WBC (Auto) Urine RBC (Auto) Ur Squamous Epith Cells Amorphous Crystals Urine Bacteria Hyaline Casts Urine Glucose Urine Ascorbic Acid Urine Opiates Screen Acetaminophen Ur Barbiturates Screen Ur Phencyclidine Scrn Ur Amphetamines Screen U Benzodiazepines Scrn Urine Cocaine Screen U Cannabinoids Screen 12/26/17 12/26/17 12/26/17 04:15 04:15 04:15 WBC 7.7 RBC 4.01 Hgb 12.4 Hct 37 MCV 92 MCH 31 MCHC 34 RDW 14 Plt Count 157 MPV 8.0 Neut % (Auto) 85.0 H Lymph % (Auto) 10.8 L [place] % (Auto) 3.8 Eos % (Auto) 0.1 Baso % (Auto) 0.3 Absolute Neuts (auto) 6.5 Absolute Lymphs (auto) 0.8 L Absolute Monos (auto) 0.3 Absolute Eos (auto) 0 Absolute Basos (auto) 0 Absolute Nucleated RBC 0 Nucleated RBC % 0.1 Schistocytes INR (Anticoag Therapy) APTT Fibrinogen D-Dimer, Quantitative Patient Temperature ABG pH ABG pH (Temp Correct) ABG pCO2 ABG pCO2 (Temp Corrct ABG pO2 ABG pO2 (Temp Correct ABG HCO3 ABG O2 Saturation ABG Base Excess Respiration Rate O2 Delivery Device Ventilator Type Vent Mode FiO2 Inspiratory Time PEEP Pressure Support Pressure Control EPAP IPAP BiPAP Sodium 130 L Potassium 6.8 H* D Chloride 104 Carbon Dioxide 21 L Anion Gap 5 BUN 40 H Creatinine 2.92 H Est GFR ( Amer) 23.2 Est GFR (Non-Af Amer) 19.2 BUN/Creatinine Ratio 13.7 Glucose 107 H Lactic Acid 2.0 Calcium 5.1 L* Ionized Calcium Phosphorus 7.4 H Magnesium 1.9 Total Bilirubin 0.40 Direct Bilirubin 0.10 Indirect Bilirubin 0.3 AST 3501 H ALT 1551 H Alkaline Phosphatase 64 Ammon[place] Total Creatine Kinase 669836 H CK-MB (CK-2) Troponin I 7.28 H* C-Reactive Protein Total Protein 4.0 L Albumin 2.4 L Globulin 1.6 L Albumin/Globulin Ratio 1.5 TSH 1.99 Free T4 1.13 H Beta HCG, Quant Cortisol Urine Color Urine Appearance Urine pH Ur Specific [place] Urine Protein Urine Ketones Urine Blood Urine Nitrate Urine Bilirubin Urine Urobilinogen Ur Leukocyte Esterase Urine WBC (Auto) Urine RBC (Auto) Ur Squamous Epith Cells Amorphous Crystals Urine Bacteria Hyaline Casts Urine Glucose Urine Ascorbic Acid Urine Opiates Screen Acetaminophen Ur Barbiturates Screen Ur Phencyclidine Scrn Ur Amphetamines Screen U Benzodiazepines Scrn Urine Cocaine Screen U Cannabinoids Screen Imaging: CT abd/pel 12/25 IMPRESSION: 1. Early or partial small bowel obstruction with transition in the right lower quadrant. No perforation or ischemia. 2. Left thigh edema with etiologies including DVT, diffuse myositis, and post traumatic. 3. Bilateral nonobstructing renal calculi. Lumbar CT 12/25 IMPRESSION: Normal noncontrast lumbar spine CT Thoracic CT 12/25 IMPRESSION: Normal noncontrast thoracic spine CT. Brain CT 12/25 IMPRESSION: Normal noncontrast head CT. Hospital Course: The patient was taken to the ICU. She was started on broad spectrum antibiotics and aggressive IV hydration. Repeat lab work showed refractory hyperkalemia. Her left lower extremity became more red and swollen. The patient was evaluated by Surgery who recommended that the patient be transferred to another facility for evaluation for necrotizing fasciitis. The patient will also likely need hemodialysis. The patients family was updated and transfer was arranged to [facility] SICU. Condition: Critical Disposition: Transfer to [facility] SICU in [facility] Discharge Medications: Aztreonam 1 gm/ Sodium (Chloride) 50 mls @ 200 mls/hr IVPB Q8H [facility] Last Admin: 12/25/17 23:34 Dose: 200 mls/hr Levetiracetam (Keppra Iv Premix*) 500 mg in 100 mls @ 400 mls/hr IV Q12H [facility] Last Admin: 12/26/17 05:39 Dose: 400 mls/hr Clindamycin HCl/Dextrose (Cleocin 600 Mg Ivpremix(*) Sdv) 600 mg in 50 mls @ 100 mls/hr IV Q6H [facility] Last Admin: 12/26/17 06:10 Dose: 100 mls/hr Propofol (Diprivan*) 100 mls @ 1.565 mls/hr IV .(Initial Rate) [facility]; Protocol Last Admin: 12/26/17 05:38 Dose: 26.4 mls/hr Sodium Chloride (Ns 0.9% 1000 Ml*) 1,000 mls @ 125 mls/hr IV PER RATE [facility] Last Admin: 12/26/17 01:31 Dose: 125 mls/hr Vancomycin HCl 750 mg/ Sodium (Chloride) 250 mls @ 166.667 mls/hr IVPB Q24H [facility] Sodium Chloride (Ns 0.9% 1000 Ml*) 2,000 mls @ 1,000 mls/hr IV ED ONCE ONE Stop: 12/26/17 09:23 Lorazepam (Ativan Inj*) 2 mg IV PUSH Q2H PRN PRN Reason: ANXIETY Last Admin: 12/26/17 06:13 Dose: 2 mg Ondansetron HCl (Zofran Inj*) 4 mg IV Q6H PRN PRN Reason: NAUSEA Pantoprazole Sodium (Protonix Iv*) 40 mg IV BID [facility] Last Admin: 12/26/17 00:07 Dose: 40 mg Pharmacy Consult (Vancomycin Per Pharmacy*) 1 note FOLLOW UP . PRN PRN Reason: PER PROTOCOL Pharmacy Profile Note (Vancomycin Trough Check) 1 note FOLLOW UP 1929 ONE Stop: 12/28/17 19:31 Discharge Instructions: Diet: NPO Activity: Bedrest
[2017-12-26] MEDS ORDERED: Sodium Bicarbonate 8.4%* 50 ML SYRINGE ONE (08:01)
[2017-12-26] MEDS ORDERED: Insulin REGULAR(*) 1 UNITS UNIT ONE (08:01)
[2017-12-26] MEDS ORDERED: Dextrose 50% Syringe 50 ML* 25 GM/50 ML SYRINGE ONE (08:02)
[2017-12-26 08:27] LABS: EGFR Non-African American 19.7 (>60); Uric Acid 11.9 mg/dL (2.3-6.6)
[2017-12-26] MEDS ORDERED: Calcium Gluconate INJ* 1 GM in NS 0.9% 50 ML* 50 ML IVPB ONE (08:30)
[2017-12-26 08:39] VITALS: BP 132/79
--- NOTE | 2017-12-26 14:00 | HP ---
HISTORY AND PHYSICAL: DATE OF ADMISSION: 12/25/17 SERVICE: General Surgery. ATTENDING SURGEON: Dr. Sarita Beltran ADMITTING PROVIDERS: Dr. Edson Hickey and Dr. Sonia Snyder. ADMISSION DIAGNOSES: 1. Multisystem organ failure. 2. Left lower extremity cellulitis. HISTORY OF PRESENT ILLNESS: The patient is a 27-year-old female with a history of IV drug use (who reportedly had been clean since 2015), who was brought into the emergency room by her family yesterday evening for altered mental status, abdominal pain, nausea and emesis. Of note, the majority of this history is being obtained from medical records as the patient is currently intubated and sedated, with her family at the bedside. Per the medical records and the family , she has had nausea and vomiting for some time and the parents found her incoherent around yesterday late afternoon and decided to bring her into the emergency room. Apparently a needle was found in her room. Per medical records , upon initial ED evaluation, she was tachycardic, but her blood pressures were stable at that time. She was also very hypothermic to 95.2 degrees Fahrenheit. Her white count was elevated. Her lactic acid was elevated. She was in renal failure with a creatinine of 3.4. Her AST, ALT were in the 1000s. At that time , she was noted to be in multisystem organ failure. She was pancultured. She received broad-spectrum antibiotics with vancomycin and cefepime. She at that time also said that she was having some left lower extremity pain and per record , it was difficult for her to move her legs during the examination. She went in for scan of her abdomen and pelvis and lumbar spine; however, coming back from the CT scan, she was found to have worsening mental status changes, she became bradycardic and went into asystolic cardiac arrest. She received CPR for about 3 minutes and was emergently intubated and she was taken to the ICU. PAST MEDICAL HISTORY: 1. History of IV drug use, was on Suboxone. 2. Brothers had stated she had an episode of seizure while she lived in [place]. PAST SURGICAL HISTORY: None. MEDICATIONS CURRENTLY TAKEN: Unknown. ALLERGIES: To PENICILLIN. FAMILY HISTORY: Unknown. SOCIAL HISTORY: She is a former drug user. REVIEW OF SYSTEMS: Unobtainable at this time. PHYSICAL EXAMINATION GENERAL: Sedated young woman, not moving extremities. VITAL SIGNS: Temperature was 96.8, heart rate was 135, respiratory rate was 19 , O2 sat was 94% on ventilator, blood pressure was 132/79. ABDOMEN: Distended, does not appear to be guarding with palpation. EXTREMITIES: Her left lower extremity is swollen, enlarged compared to the right. She has patchy erythema throughout and she reflectively moves her lower extremities. DIAGNOSTIC STUDIES/LAB DATA: White blood cell count is 7.7 down from 24.1, hemoglobin of 12.4, hematocrit is 37, platelets are 157. INR is 1.35. Her ABG is 7.2, CO2 is 30, pO2 is 197, her base excess was -15. Chemistries: Sodium is 134, potassium was 6.8, chloride is 109, anion gap is 20 , BUN is 40, creatinine is 2.85, glucose is 115, uric acid is 11.9. Her most recent AST and ALT were 3501 and 1551. Creatine kinase is 150,830. Troponin 7.28. Her urinalysis shows positive for opiates. Her acetaminophen levels were less than 15. RADIOLOGY: Her chest, abdomen, pelvis CT scans were reviewed, please see notes for full details. Impression was an early partial small bowel obstruction with transition point of right lower quadrant. No perforation or ischemia. Left thigh edema with etiology to include DVT, diffuse myositis, and posttraumatic bilateral nonobstructing renal calculi. Lumbar CT was normal. Thoracic spine CT was normal and head CT was normal. ASSESSMENT AND PLAN: The patient is a 27-year-old female with a history of IV drug use up to 3 years ago, who presented with altered mental status, abdominal pain, left lower extremity swelling and pain, who rapidly decompensated in the emergency room during her initial evaluation. She went to cardiac arrest and requiring emergent intubation. Her initial laboratory values showed acute electrolyte derangements, with elevated troponins, elevated lactate, hypokalemia , hyponatremia and leukocytosis. She was in acute renal and liver failure upon arrival. She was hyponatremic and imaging did show possibly some dilated small bowel loops; however, her left lower extremity from the lower cuts of the CT scan also demonstrated some stranding, edema and some swelling of the left lower extremity. On exam, her leg appears to be edematous with some cellulitis. Clindamycin had been started for possible necrotizing fasciitis. At this time, it is uncertain why she went to acute multisystem organ failure; however, given the findings on her left lower extremity, the concern is that she may have a necrotizing soft tissue infection. At the time when I was consulted, the patient has refractory hyperkalemia and is requiring urgent hemodialysis; however, it is uncertain if it can be obtained at our institution. The ICU attending and I discussed these findings with her family at the bedside. Given the acuity and severity of the patient's illness and multisystem organ failure she should be transferred to a tertiary care center with more multidisciplinary providers to address her medical needs. It is uncertain if this patient could tolerate at this moment going to the operating room for an exploration of her lower extremity. The ICU attending has arranged for transfer to [facility]. [id number]/[facility] #: [id number] LUZ EELNA
[2017-12-26] MEDS ORDERED: Vancomycin(*) 750 MG in NS 0.9% 250 ML* 250 ML IVPB SCH (20:00)
[2017-12-28] MEDS ORDERED: Vancomycin Trough Check NOTE FOLLOW UP ONE (19:30)
== END 2017-12-26 09:10 | disposition short-term general hospital (02) | DRG 871 ==
LOC: ED 17:58 → ICU 20:57
PROVIDERS: ADMIT Internal Medicine; ATTEND Internal Medicine
PROC: 0BH17EZ Insertion of Endotracheal Airway into Trachea, Via Natural or Artificial Opening (ICD-10-PCS; principal; 2017-12-25)
PROC: 5A1935Z Respiratory Ventilation, Less than 24 Consecutive Hours (ICD-10-PCS; 2017-12-25)
DX: A41.9 Sepsis, unspecified organism (principal); K72.00 Acute and subacute hepatic failure without coma; I46.9 Cardiac arrest, cause unspecified; N17.0 Acute kidney failure with tubular necrosis; J96.90 Respiratory failure, unspecified, unspecified whether with hypoxia or hypercapnia; L03.116 Cellulitis of left lower limb; L02.416 Cutaneous abscess of left lower limb; E87.2 Acidosis; K56.609 Unspecified intestinal obstruction, unspecified as to partial versus complete obstruction; R65.20 Severe sepsis without septic shock; S00.83XA Contusion of other part of head, initial encounter; W06.XXXA Fall from bed, initial encounter; J45.909 Unspecified asthma, uncomplicated; R68.0 Hypothermia, not associated with low environmental temperature; R00.1 Bradycardia, unspecified; E87.5 Hyperkalemia; K21.9 Gastro-esophageal reflux disease without esophagitis; M19.90 Unspecified osteoarthritis, unspecified site; F41.9 Anxiety disorder, unspecified; F43.10 Post-traumatic stress disorder, unspecified; F90.9 Attention-deficit hyperactivity disorder, unspecified type; Z91.5 Personal history of self-harm; Z88.0 Allergy status to penicillin; Y92.003 Bedroom of unspecified non-institutional (private) residence as the place of occurrence of the external cause; Z82.49 Family history of ischemic heart disease and other diseases of the circulatory system; Z83.3 Family history of diabetes mellitus; Z87.891 Personal history of nicotine dependence
CPT/HCPCS: 36415; 36600; 70450; 71045; 72128; 72131; 74176; 80048; 80053; 80074; 80076; 80202; 80307; 80329; 81003; 81015; 82140; 82306; 82330; 82533; 82550; 82553; 82803; 83605; 83615; 83735; 83970; 84100; 84439; 84443; 84484; 84550; 84702; 85025; 85049; 85362; 85384; 85610; 85730; 86140; 87040; 87077; 87086; 87186; 87491; 87591; 87641; 93005; 94002; 94003; 99285; G0480; J0132; J0171; J0330; J0610; J0692; J2060; J2250; J2405; J2704; J3370; J3490

== ENCOUNTER 2018-03-18 17:27 | Observation (INO) | payer BC ==
--- NOTE | 2018-03-18 19:09 | ED ---
Complex/Multi-Sys Presentation - HPI Summary HPI Summary: 28-year-old female presents from rescue mission today for inability to care for self. She states she was just released from [facility] and was sent to the rescue [facility]. She states she needs assist to transition with her walker. She states she is not able to place any weight on her left leg. She states she had a fasciotomy two month ago due to rhabdo. She has healing wounds on her left thigh and lower leg. States she's been changing her dressing daily. No fevers. No spreading redness. states is falling when tries to use walker because is unsteady. family states is not save to go home with them and needs to be replaced in rehab. - History Of Current Complaint Chief Complaint: EDWeakness Time Seen by Provider: 03/18/18 18:35 - Allergies/Home Medications Allergies/Adverse Reactions: Allergies Allergy/AdvReac Type Severity Reaction Status Date / Time penicillin G AdvReac Vomiting Verified 12/25/17 23:39 Home Medications: Home Medications Celecoxib 200 mg PO DAILY 03/18/18 [History Confirmed 03/18/18] Compazine 10 mg PO Q6H PRN 03/18/18 [History Confirmed 03/18/18] Ergocalciferol (Vitamin D2) 50,000 units PO WEEKLY 03/18/18 [History Confirmed 03/18/18] Gabapentin [Neurontin] 100 mg PO TID 03/18/18 [History Confirmed 03/18/18] Ibuprofen 400 mg PO BID PRN 03/18/18 [History Confirmed 03/18/18] LORazepam 0.5 mg PO DAILY PRN 03/18/18 [History Confirmed 03/18/18] Lamictal 50 mg PO BEDTIME 03/18/18 [History Confirmed 03/18/18] Lopressor 25 mg PO TID 03/18/18 [History Confirmed 03/18/18] Magnesium Hydroxide 250 mg PO BID 03/18/18 [History Confirmed 03/18/18] Magnesium Oxide [Essential Magnesium] 500 mg PO DAILY 03/18/18 [History Confirmed 03/18/18] Oxycodone HCl 10 MG 10 mg PO Q12H 03/18/18 [History Confirmed 03/18/18] Pantoprazole TAB * 40 mg PO DAILY 03/18/18 [History Confirmed 03/18/18] Polysporin Ointment 1 applic TOPICAL 03/18/18 [History] Potassium Chloride 40 meq PO DAILY 03/18/18 [History Confirmed 03/18/18] QUEtiapine TAB* [Seroquel 25 MG TAB*] 25 mg PO DAILY 03/18/18 [History Confirmed 03/18/18] Sodium Chloride TAB* 2 gm PO DAILY 03/18/18 [History Confirmed 03/18/18] Spironolactone 100 mg PO 03/18/18 [History] Zofran 4 mg PO QID PRN 03/18/18 [History Confirmed 03/18/18] oxyCODONE TAB* 5 mg PO BID 03/18/18 [History Confirmed 03/18/18] traMADol TAB* 50 mg PO BID PRN 03/18/18 [History Confirmed 03/18/18] PMH/Surg Hx/FS Hx/Imm Hx Endocrine/Hematology History: Reports: Hx Anemia Denies: Hx Diabetes, Hx Thyroid Disease Cardiovascular History: Denies: Hx Hypertension, Hx Pacemaker/ICD Respiratory History: Reports: Hx Asthma - Exercise Induced, Hx Chronic Bronchitis Denies: Hx Chronic Obstructive Pulmonary Disease (COPD) GI History: Reports: Hx Gastroesophageal Reflux Disease Denies: Hx Ulcer History: Reports: Hx Kidney Infection Musculoskeletal History: Reports: Hx Arthritis, Hx Back Problems Sensory History: Denies: Hx Contacts or Glasses, Hx Hearing Aid Opthamlomology History: Denies: Hx Contacts or Glasses Neurological History: Reports: Hx Headaches, Hx Migraine, Hx Seizures, Other Neuro Impairments/Disorders - PAIN CLINIC PT Psychiatric History: Reports: Hx Anxiety, Hx Attention Deficit Hyperactivity Disorder, Hx Depression, Hx Post Traumatic Stress Disorder, Hx Bipolar Disorder , Hx Suicide Attempt, Hx of Violent Episodes Against Others Denies: Hx Panic Disorder - Surgical History Surgery Procedure, Year, and Place: CYST REMOVED FROM RT [facility];. NEXPLANON ( BIRTHCONTROL) MRI SAFE UPTO 3T PER [facility]; Infectious Disease History: No Infectious Disease History: Denies: Hx Hepatitis, Hx Human Immunodeficiency Virus (HIV), Traveled Outside the [place] in Last 30 Days - Family History Known Family History: Positive: None, Cardiac Disease, Diabetes Family History: Reviewed and Noncontributory - Social History Alcohol Use: None Alcohol Amount: IN RECOVERY Substance Use Type: Reports: Heroin Substance Use Comment - Amount & Last Used: hx heroin addiction Smoking Status (MU): Former Smoker Type: Cigarettes Amount Used/How Often: Using Nicotene Patch Length of Time of Smoking/Using Tobacco: 5 years Have You Smoked in the Last Year: Yes Review of Systems Negative: Fever Negative: Chest Pain Negative: Shortness Of Breath Positive: Other - wound on left leg All Other Systems Reviewed And Are Negative: Yes Physical Exam Triage Information Reviewed: Yes Vital Signs On Initial Exam: Initial Vitals Temp Pulse Resp BP Pulse Ox 98.9 F 108 18 103/83 100 03/18/18 18:01 03/18/18 18:01 03/18/18 18:01 03/18/18 18:01 03/18/18 18:01 Vital Signs Reviewed: Yes Appearance: Positive: Well-Appearing Skin: Positive: Warm, Dry, Other - 8cm by 3cm area with packing in place on left inner thigh with no erythema surrounding. 8cm healing laceration on left outer thigh with no evidence of dehiscence or infection. 7cm healing laceration on left delgadillo with no evidence of infection surrounding Head/Face: Positive: Normal Head/Face Inspection Eyes: Positive: Normal, Conjunctiva Clear ENT: Positive: Pharynx normal Respiratory/Lung Sounds: Positive: Clear to Auscultation, Breath Sounds Present Cardiovascular: Positive: Normal, RRR Musculoskeletal: Positive: Limited @ - left leg, Other - good pulses Neurological: Positive: Abnormal Gait - unable to place weight on left leg, unsteady on feet Psychiatric: Positive: Normal Diagnostics - Vital Signs Vital Signs Temp Pulse Resp BP Pulse Ox 03/18/18 18:01 98.9 F 108 18 103/83 100 - Laboratory Result Diagrams: 03/18/18 22:55 03/18/18 22:55 Lab Statement: Any lab studies that have been ordered have been reviewed, and results considered in the medical decision making process. Re-Evaluation - Re-Evaluation First Eval Re-Evaluation Time: 19:32 Comment: discussed will wait until family comes for dispo Second Eval Re-Evaluation Time: 20:52 Comment: patient was able to ambulate in ED with walker and no assistance. still awaiting family for place to go Complex Multi-Symp Course/Dx Course Of Treatment: 28-year-old female presents with inability to care for herself due to limited mobility. She states that she requires assistance in transitioning. She states that she was just discharged from rehabilitation facility and sent rescue mission. she states that they can not give her the support she needs. on exam has healing laceration on left delgadillo and thigh. has open wound with packing on left thigh that has no evidence of cellulitis. spoke with social work who states if unable to take care of self may need to be admitted for placement in retirement. attempted to have patient use crutches and she feel into the aide. patient was able to use walker to walk 10 ft with minimial support. family finally arrived and discussed with family that do not feel comfortable taking patient home and are requesting admission. hospital agrees to admit - Diagnoses Differential Diagnoses/HQI/PQRI: Other - cellulitis, dehsicence, gait issue Provider Diagnoses: Mobility impaired Discharge - Sign-Out/Discharge Documenting (check all that apply): Patient Departure - Discharge Plan Condition: Good Disposition: ADMITTED TO [facility] Referrals: No Primary Care Phys,NOPCP [Primary Care Provider] - - Billing Disposition and Condition Condition: GOOD Disposition: Admitted to [facility]
[2018-03-18 23:02] LABS: ABS Basophils 0 10^3/ul (0-0.2); ABS Eosinophils 0.2 10^3/ul (0-0.6); ABS Lymphocytes 1.7 10^3/ul (1.0-4.8); ABS Monocytes 0.4 10^3/ul (0-0.8); ABS Neutrophils 3.1 10^3/ul (1.5-7.7); ABS Nucleated RBC 0 10^3/ul; Eosinophil % 3.1 %; Hematocrit 35 % (35-47); Hemoglobin 11.7 g/dl (12.0-16.0); Lymphocyte % 31.3 %; Mean Corpuscular HGB Conc 33 g/dl (31-36); Mean Corpuscular Hemoglobin 29 pg (27-31); Mean Corpuscular Volume 86 fL (80-97); Mean Platelet Volume 7.3 fL (7.4-10.4); Nucleated Red Blood Cells % 0; Platelet Count 299 10^3/ul (150-450); Red Blood Count 4.09 10^6/ul (4.00-5.40); Red Cell Distribution Width 14 % (10.5-15); White Blood Count 5.4 10^3/ul (3.5-10.8)
[2018-03-18] MEDS ORDERED: oxyCODONE TAB* 5 MG TAB PO ONE (23:18)
[2018-03-18 23:20] LABS: ALT 6 U/L (7-52); AST 13 U/L (13-39); Albumin 4.7 g/dL (3.2-5.2); Albumin/Globulin Ratio 1.7 (1-3); Alkaline Phosphatase 71 U/L (34-104); Anion Gap 7 mmol/L (2-11); BUN/Creatinine Ratio 22.4 (8-20); Blood Urea Nitrogen 11 mg/dL (6-24); C Reactive Protein 2.31 mg/L (<8.01); CO2 Carbon Dioxide 26 mmol/L (22-32); Calcium 10.4 mg/dL (8.6-10.3); Chloride 103 mmol/L (101-111); EGFR African American 180.7 (>60); EGFR Non-African American 149.3 (>60); Globulin 2.8 g/dL (2-4); Glucose 80 mg/dL (70-100); Potassium 4.6 mmol/L (3.5-5.0); Sodium 136 mmol/L (135-145); Total Protein 7.5 g/dL (6.4-8.9)
[2018-03-18 23:26] LABS: HCG Pregnancy < 0.60 mIU/mL
[2018-03-18] MEDS ORDERED: traMADol TAB* 50 MG PO ONE (23:56)
[2018-03-19] MEDS ORDERED: traMADol TAB* 50 MG PO PRN (00:06)
[2018-03-19] MEDS ORDERED: Ondansetron TAB* 4 MG PO PRN (00:06)
[2018-03-19] MEDS ORDERED: OXYCODONE HCL 10 MG PO SCH (00:15)
[2018-03-19] MEDS ORDERED: oxyCODONE TAB* 5 MG TAB PO PRN (01:51)
--- NOTE | 2018-03-19 02:27 | HP ---
HISTORY AND PHYSICAL: DATE OF ADMISSION: 03/19/18 PRIMARY CARE PROVIDER: The patient does not have one. CHIEF COMPLAINT: Cannot ambulate, cannot take care of herself. HISTORY OF PRESENT ILLNESS: This is a 28-year-old female who was diagnosed with acute compartment sy ndrome in December 2017 and underwent fasciotomy. Subsequently was at [facility] since December [facility] now for rehabilitation and IV antibiotics and nursing care. The patient was discharged from [facility] yesterday, 03/18/18. The patient did not have a home to go to, so the patient was d ischarged to a homeless detention and the [facility] detention did not have any beds or able to accommodate her and subsequently the patient was brought here. The patient is requiring pain medication, physic al therapy, as well as wound care. So, they could not accommodate all these things, so they decided to send the patient to the emergency room. The patient reports that she is unable to walk or place w eight on her left leg, she does have a walker that was given by the [facility]. PAST MEDICAL HISTORY: 1. Hypertension. 2. Asthma. 3. Bipolar disorder. PAST SURGICAL HISTORY: 1. Surgery for the left acute compartment syndrome of the left leg. 2. Ganglion cyst removal. MEDICATIONS: Home medications include: 1. Sodium chloride 2 g daily. 2. Pantoprazole 40 mg daily. 3. Magnesium oxide 500 mg daily. 4. Lamictal 50 mg at bedtime. 5. Lorazepam 0.5 mg daily as needed. 6. Ergocalciferol 50,000 units weekly. 7. Seroquel 25 mg daily. 8. Potassium chloride 40 mEq daily. 9. Lopressor 25 mg t.i.d. 10. Oxycodone 10 mg every 12 hours. 11. Celecoxib 200 mg daily. 12. Compazine 10 mg every 6 hours as needed. 13. Gabapentin 100 mg t.i.d. 14. Ibuprofen 400 mg b.i.d. as needed. 15. Magnesium hydroxide 250 mg b.i.d. 16. Oxycodone 5 mg b.i.d. 17. Tramadol 50 mg every 12 hours as needed. 18. Zofran 4 mg every 6 hours as needed. 19. Spironolactone 100 mg daily. 20. Polysporin ointment. ALLERGIES: Include PENICILLIN. FAMILY HISTORY: Mother: Alcoholism. Father: Diabetes. SOCIAL HISTORY: Former smoker, she does not drink alcohol. Currently, she is homeless. PHYSICAL EXAMINATION GENERAL: This is a thin-appearing female, lying in an ER stretcher, in no acute distress. VITAL SIGNS: Blood pressure of 105/64, heart rate of 107, pulse ox of 98% on room air, temperature o f 98.9 Fahrenheit. HEENT: Pupils equal, round, reactive to light. Atraumatic, normocephalic. There is no oropharyngea l erythema. LUNGS: Cleat to auscultation bilaterally with no wheezing, rales, or rhonchi. HEART: There is no chest wall tenderness. Regular rate and rhythm. No murmurs, rubs, or gallops. EXTREMITIES: There is no lower extremity edema on the right side. Trace lower extremity edema on th e left. At the left thigh region, there are 2 lesions noted with dressing intact, the first one on t he anterior surface has granulation tissue with dressing intact with no discharge. One on the medial surface, lesion is noted, dressing is packed with mild sanguineous discharge. NEUROLOGIC: Alert and oriented x3 with no focal neurological deficits. DIAGNOSTIC STUDIES/LAB DATA: Lab shows hemoglobin of 11.7, hematocrit of 35, platelets of 299. Yocasta mike shows BUN of 11, creatinine of 0.49, calcium of 10.4, ALT of 6. IMPRESSION AND PLAN: 1. At this point, the patient has to stay in the hospital as there is no one to provide care for her and she is having difficulty ambulating secondary to unable to place weight on the left leg. We michael l get a physical therapy evaluation as well as wound care consult for her wound care. We will contin ue her home medications for a history of bipolar disorder as well as hypertension. 2. Her asthma is controlled. [id number]/[facility] #: [id number]
[2018-03-19] MEDS: lamoTRIgine TAB(*) 25 MG PO SCH ×2 (02:42→20:10)
[2018-03-19] MEDS: QUEtiapine TAB* 25 MG PO SCH ×2 (02:44→20:09)
[2018-03-19] MEDS: Ibuprofen TAB* 400 MG PO PRN ×2 (02:45→11:23)
[2018-03-19] MEDS: LORazepam TAB(*) 0.5 MG PO PRN ×2 (02:46→11:22)
[2018-03-19] MEDS ORDERED: Gabapentin CAP(*) 100 MG ONE (02:59)
[2018-03-19] MEDS ORDERED: OXYCODONE 5 MG PO SCH (09:00)
[2018-03-19] MEDS ORDERED: oxyCODONE SR TAB(*) 10 MG TAB.SR PO SCH (09:00)
[2018-03-19] MEDS ORDERED: MAGNESIUM HYDROXIDE PO SCH (09:00)
[2018-03-19] MEDS ORDERED: Heparin VIAL(*) 5000 UNITS/ML VIAL (FIVE THOUSAND) SUBCUT SCH (09:00)
[2018-03-19] MEDS ORDERED: QUEtiapine TAB* 25 MG PO SCH (09:00)
[2018-03-19] MEDS: Spironolactone TAB* 25 MG PO SCH (09:33)
[2018-03-19] MEDS: Pantoprazole TAB * 40 MG TAB PO SCH (09:34)
[2018-03-19] MEDS: Gabapentin CAP(*) 100 MG PO SCH ×3 (09:34→20:08)
[2018-03-19] MEDS: celeCOXIB CAP* 200 MG PO SCH (09:35)
[2018-03-19] MEDS: Magnesium Oxide TAB* 400 MG PO SCH (09:35)
[2018-03-19] MEDS: Neosporin TOPICAL OINT* 1 EA PACKET TOPICAL SCH ×2 (09:35→20:25)
[2018-03-19] MEDS: Potassium Chlor TAB* 20 MEQ TAB.ER PO SCH (09:35)
[2018-03-19] MEDS: Metoprolol Tartrate TAB* 25 MG PO SCH ×3 (09:35→20:33)
[2018-03-19] MEDS: Sodium Chloride TAB* 1 GM PO SCH (09:35)
--- NOTE | 2018-03-19 11:10 | PN ---
Subjective Date of Service: 03/19/18 Interval History: Pain not well controlled Good historian, appropriate Objective Active Medications: Acetaminophen (Tylenol Tab*) 650 mg PO Q6H [facility] Celecoxib (Celebrex Cap*) 200 mg PO DAILY [facility] Last Admin: 03/19/18 09:35 Dose: 200 mg Ergocalciferol (Drisdol Cap*) 50,000 unit PO Tu [facility] Gabapentin (Neurontin Cap(*)) 100 mg PO TID [facility] Last Admin: 03/19/18 09:34 Dose: 100 mg Heparin Sodium (Porcine) (Heparin Vial(*)) 5,000 units SUBCUT Q12HR [facility] Last Admin: 03/19/18 09:34 Dose: 5,000 units Ibuprofen (Motrin Tab*) 400 mg PO BID PRN PRN Reason: PAIN Last Admin: 03/19/18 02:45 Dose: 400 mg Lamotrigine (Lamictal Tab(*)) 50 mg PO BEDTIME [facility] Last Admin: 03/19/18 02:42 Dose: 50 mg Lorazepam (Ativan Tab(*)) 0.5 mg PO DAILY PRN PRN Reason: dressing change Last Admin: 03/19/18 02:46 Dose: 0.5 mg Magnesium Oxide (Magox 400 Tab*) 400 mg PO DAILY [facility] Last Admin: 03/19/18 09:35 Dose: 400 mg Metoprolol Tartrate (Lopressor Tab*) 25 mg PO TID [facility] Last Admin: 03/19/18 09:35 Dose: 25 mg Neomycin/Polymyxin/Bacitracin (Neosporin Top Oint Packet*) 1 ea TOPICAL BID [facility] Last Admin: 03/19/18 09:35 Dose: 1 ea Ondansetron HCl (Zofran Tab*) 4 mg PO QID PRN PRN Reason: NAUSEA Oxycodone HCl (Roxycodone Tab*) 5 mg PO Q6H PRN PRN Reason: PAIN Oxycodone HCl (Oxycontin(*)) 15 mg PO BID [facility] Pantoprazole Sodium (Protonix Tab*) 40 mg PO DAILY [facility] Last Admin: 03/19/18 09:34 Dose: 40 mg Potassium Chloride (Klor Con Er Tab*) 40 meq PO DAILY [facility] Last Admin: 03/19/18 09:35 Dose: 40 meq Quetiapine Fumarate (Seroquel Tab*) 25 mg PO BEDTIME [facility] Last Admin: 03/19/18 02:44 Dose: 25 mg Sodium Chloride (Sodium Chloride Tab*) 2 gm PO DAILY [facility] Last Admin: 03/19/18 09:35 Dose: 2 gm Spironolactone (Aldactone Tab*) 100 mg PO DAILY [facility] Last Admin: 03/19/18 09:33 Dose: 100 mg Tramadol HCl (Ultram*) 50 mg PO BID PRN PRN Reason: PAIN Vital Signs - 8 hr 03/19/18 03/19/18 03/19/18 03:42 04:45 05:23 Temperature 97.9 F Pulse Rate 114 Respiratory 18 16 16 Rate Blood Pressure 119/72 (mmHg) O2 Sat by Pulse 18 Oximetry 03/19/18 03/19/18 07:25 09:34 Temperature 97.9 F Pulse Rate 116 Respiratory 12 16 Rate Blood Pressure 105/60 (mmHg) O2 Sat by Pulse 99 Oximetry Oxygen Devices in Use Now: None Appearance: NAD Eyes: No Scleral Icterus, PERRLA Ears/Nose/Mouth/Throat: Mucous Membranes Moist, - - poor dentition Neck: NL Appearance and Movements; NL JVP, Trachea Midline Respiratory: Symmetrical Chest Expansion and Respiratory Effort, Clear to Auscultation Cardiovascular: NL Sounds; No Murmurs; No JVD, RRR Abdominal: NL Sounds; No Tenderness; No Distention, No Hepatosplenomegaly Lymphatic: No Cervical Adenopathy Extremities: No Edema Skin: - - left thigh and calf wrapped, to be examined during dressing change later today Neurological: Alert and Oriented x 3 Result Diagrams: 03/18/18 22:55 03/18/18 22:55 Microbiology and Other Data: Microbiology 03/19/18 01:35 Nasal Screen MRSA (PCR) - Final Nasal Mrsa Not Detected Assess/Plan/Problems-Billing Assessment: 28 yo F h/o polysubstance abuse moved from [place] in December suffered relapse and presented to [facility] with multisystem organ failure s/p cardiac arrest/ ROSV, intubation and transfer to [place] for left leg compartment syndrome where she spent 1 month before transfer to [facility] in January. She reports insurance was no longer paying for rehab and she was discharged to [facility] on Tuesday but immediately sent to [facility] ED / no beds available and lack of mobility. - Patient Problems (1) Leg wound, left Comment: continue current regimen patient was performing her own wound packing prior to discharge from [place] (2) Asthma Comment: stable (3) Bipolar disorder Comment: nisha ku Pt reports previous hospital was in process of uptitrating to her previous doses (4) Pain Comment: restart her regimen from [facility] tylenol standing oxycodone sr 15 bid Oxycodone 5 mg q6h motrin q6hr tramadol BID (this may have been more frequent) (5) DVT prophylaxis Comment: rachnax
[2018-03-19] MEDS: Acetaminophen TAB* 325 MG PO SCH ×2 (11:38→16:40)
[2018-03-19] MEDS: oxyCODONE TAB* 5 MG TAB PO PRN ×2 (11:39→20:22)
[2018-03-19] MEDS: Enoxaparin(*) 40 MG/0.4 ML SYR SUBCUT SCH (11:39)
[2018-03-19] MEDS: traMADol TAB* 50 MG PO PRN ×2 (16:41→22:57)
[2018-03-19] MEDS: oxyCODONE SR TAB(*) 15 MG TAB.SR PO SCH (20:33)
[2018-03-19] MEDS ORDERED: lamoTRIgine TAB(*) 25 MG PO SCH (21:00)
[2018-03-20] MEDS: Acetaminophen TAB* 325 MG PO SCH ×4 (00:30→18:01)
[2018-03-20] MEDS: oxyCODONE TAB* 5 MG TAB PO PRN ×4 (02:29→21:05)
[2018-03-20] MEDS: traMADol TAB* 50 MG PO PRN ×3 (05:30→18:01)
[2018-03-20] MEDS: Metoprolol Tartrate TAB* 25 MG PO SCH ×3 (08:30→21:04)
[2018-03-20] MEDS: oxyCODONE SR TAB(*) 15 MG TAB.SR PO SCH ×2 (08:38→21:05)
[2018-03-20] MEDS: Spironolactone TAB* 25 MG PO SCH (08:39)
[2018-03-20] MEDS: Pantoprazole TAB * 40 MG TAB PO SCH (08:39)
[2018-03-20] MEDS: Magnesium Oxide TAB* 400 MG PO SCH (08:39)
[2018-03-20] MEDS: celeCOXIB CAP* 200 MG PO SCH (08:39)
[2018-03-20] MEDS: Sodium Chloride TAB* 1 GM PO SCH (08:39)
[2018-03-20] MEDS: Potassium Chlor TAB* 20 MEQ TAB.ER PO SCH (08:39)
[2018-03-20] MEDS: Gabapentin CAP(*) 100 MG PO SCH ×3 (08:40→21:03)
[2018-03-20] MEDS: Neosporin TOPICAL OINT* 1 EA PACKET TOPICAL SCH ×2 (11:30→21:04)
[2018-03-20] MEDS: Enoxaparin(*) 40 MG/0.4 ML SYR SUBCUT SCH (11:40)
--- NOTE | 2018-03-20 14:50 | PN ---
Subjective Date of Service: 03/20/18 Interval History: HOSPITALIST PROGRESS NOTE Patient seen and examined at bedside. Care reviewed and d/w Aurelia Griffin RN. She c/o left leg pain 08/16, unchanged from prior. States pain medication only takes "the edge off". Family History: Unchanged from Admission Social History: Unchanged from Admission Past Medical History: Unchanged from Admission Objective Active Medications: Acetaminophen (Tylenol Tab*) 650 mg PO Q6H [facility] Last Admin: 03/20/18 11:39 Dose: 650 mg Celecoxib (Celebrex Cap*) 200 mg PO DAILY [facility] Last Admin: 03/20/18 08:39 Dose: 200 mg Enoxaparin Sodium (Lovenox(*)) 40 mg SUBCUT Q24H [facility] Last Admin: 03/20/18 11:40 Dose: 40 mg Ergocalciferol (Drisdol Cap*) 50,000 unit PO Tu [facility] Gabapentin (Neurontin Cap(*)) 100 mg PO TID [facility] Last Admin: 03/20/18 14:40 Dose: 100 mg Ibuprofen (Motrin Tab*) 400 mg PO BID PRN PRN Reason: PAIN Last Admin: 03/19/18 11:23 Dose: 400 mg Lamotrigine (Lamictal Tab(*)) 50 mg PO BEDTIME [facility] Last Admin: 03/19/18 20:10 Dose: 50 mg Lorazepam (Ativan Tab(*)) 0.5 mg PO DAILY PRN PRN Reason: dressing change Last Admin: 03/19/18 11:22 Dose: 0.5 mg Magnesium Oxide (Magox 400 Tab*) 400 mg PO DAILY [facility] Last Admin: 03/20/18 08:39 Dose: 400 mg Metoprolol Tartrate (Lopressor Tab*) 25 mg PO TID [facility] Last Admin: 03/20/18 14:17 Dose: Not Given Neomycin/Polymyxin/Bacitracin (Neosporin Top Oint Packet*) 1 ea TOPICAL BID [facility] Last Admin: 03/20/18 11:30 Dose: Not Given Ondansetron HCl (Zofran Tab*) 4 mg PO QID PRN PRN Reason: NAUSEA Oxycodone HCl (Roxycodone Tab*) 5 mg PO Q6H PRN PRN Reason: PAIN Last Admin: 03/20/18 14:40 Dose: 5 mg Oxycodone HCl (Oxycontin(*)) 15 mg PO BID [facility] Last Admin: 03/20/18 08:38 Dose: 15 mg Pantoprazole Sodium (Protonix Tab*) 40 mg PO DAILY [facility] Last Admin: 03/20/18 08:39 Dose: 40 mg Potassium Chloride (Klor Con Er Tab*) 40 meq PO DAILY [facility] Last Admin: 03/20/18 08:39 Dose: 40 meq Quetiapine Fumarate (Seroquel Tab*) 25 mg PO BEDTIME [facility] Last Admin: 03/19/18 20:09 Dose: 25 mg Sodium Chloride (Sodium Chloride Tab*) 2 gm PO DAILY [facility] Last Admin: 03/20/18 08:39 Dose: 2 gm Spironolactone (Aldactone Tab*) 100 mg PO DAILY [facility] Last Admin: 03/20/18 08:39 Dose: 100 mg Tramadol HCl (Ultram*) 50 mg PO Q6H PRN PRN Reason: PAIN Last Admin: 03/20/18 11:39 Dose: 50 mg Vital Signs - 8 hr 03/20/18 03/20/18 03/20/18 08:16 08:38 08:40 Temperature 98.4 F Pulse Rate 101 Respiratory 12 16 16 Rate Blood Pressure 95/54 (mmHg) O2 Sat by Pulse 99 Oximetry 03/20/18 03/20/18 03/20/18 08:47 11:39 12:15 Temperature 98.3 F Pulse Rate 115 Respiratory 16 16 12 Rate Blood Pressure 93/54 (mmHg) O2 Sat by Pulse 99 Oximetry 03/20/18 14:40 Temperature Pulse Rate Respiratory 16 Rate Blood Pressure (mmHg) O2 Sat by Pulse Oximetry Oxygen Devices in Use Now: None Appearance: Young lady lying in bed in [facility]. Eyes: No Scleral Icterus Ears/Nose/Mouth/Throat: Mucous Membranes Moist, - - Poor dentition Neck: Trachea Midline Extremities: - - CDI to LLE Neurological: Alert and Oriented x 3 - Nutrition: Malnutrition Diagnosis/Plan Malnutrition Assessment by Registered Dietitian: Malnutrition Assessment Clinical Characteristics Acute,Severe Malnutrition Assessment: - (at least) 16% wt loss x past ~ 3 months Criteria - < 75% estimated energy needs > 7 days - Mild-moderate temporal muscle wasting - Underweight status - BMI 17.4 Malnutrition Assessment: Will send Ensure Clear w/ meals: 240 kcals, 8 Interventions grams protein. Malnutrition Assessment: Goals 1. Intake will improve to replete muscle mass, maintain hydration, and prevent additional wt loss Result Diagrams: 03/18/18 22:55 03/18/18 22:55 Assess/Plan/Problems-Billing Assessment: Ms Dalton is a 28 yo F h/o polysubstance abuse moved from [place] in December suffered relapse and presented to [facility] with multisystem organ failure s/ p cardiac arrest/ROSV, intubation and transfer to [place] for left leg compartment syndrome where she spent 1 month before transfer to [facility] in January. Discharged to [facility] on 03/18/18 but was immediately sent to [facility] ED as there were no beds available at the fpc and her lack of mobility. - Patient Problems (1) Leg wound, left Comment: - Continue current regimen. - Patient was performing her own wound packing prior to discharge from [place]. - Wound care consult requested. (2) Pain Comment: - Continue her regimen from [place]: tylenol standing oxycodone sr 15 bid Oxycodone 5 mg q6h motrin q6hr tramadol BID (3) Severe protein-calorie malnutrition Comment: - Patient has lost 16% of her weight over the past 3 months, with < 75 % estimated energy needs > 7 days, mild-moderate temporal muscle wasting, and underweight status with BMI 17.4. - Dietitian input appreciated. (4) Bipolar disorder Comment: - Continue lamictal, seroquel. (5) DVT prophylaxis Comment: - Lovenox. Status and Disposition: OBV. Patient cannot function independently in a homeless fpc due to her difficulty with ambulation. States family is not welcoming her at this time. CM to pursue SNF.
[2018-03-20] MEDS: LORazepam TAB(*) 0.5 MG PO PRN (15:10)
[2018-03-20] MEDS: lamoTRIgine TAB(*) 25 MG PO SCH (21:00)
[2018-03-20] MEDS: QUEtiapine TAB* 25 MG PO SCH (21:01)
[2018-03-21] MEDS: Acetaminophen TAB* 325 MG PO SCH ×5 (04:26→23:06)
[2018-03-21] MEDS: oxyCODONE TAB* 5 MG TAB PO PRN ×4 (04:52→23:06)
[2018-03-21] MEDS: Metoprolol Tartrate TAB* 25 MG PO SCH ×3 (07:58→20:17)
[2018-03-21] MEDS: oxyCODONE SR TAB(*) 15 MG TAB.SR PO SCH ×2 (08:04→20:15)
[2018-03-21] MEDS: traMADol TAB* 50 MG PO PRN ×4 (08:04→20:16)
[2018-03-21] MEDS: Potassium Chlor TAB* 20 MEQ TAB.ER PO SCH (08:05)
[2018-03-21] MEDS: Pantoprazole TAB * 40 MG TAB PO SCH (08:05)
[2018-03-21] MEDS: celeCOXIB CAP* 200 MG PO SCH (08:05)
[2018-03-21] MEDS: Gabapentin CAP(*) 100 MG PO SCH ×3 (08:05→20:15)
[2018-03-21] MEDS: Ibuprofen TAB* 400 MG PO PRN (08:05)
[2018-03-21] MEDS: Magnesium Oxide TAB* 400 MG PO SCH (08:05)
[2018-03-21] MEDS: Sodium Chloride TAB* 1 GM PO SCH (08:05)
[2018-03-21] MEDS: Spironolactone TAB* 25 MG PO SCH (08:06)
[2018-03-21] MEDS ORDERED: Ergocalciferol CAP* 50000 UNIT PO SCH (09:00)
[2018-03-21] MEDS: Enoxaparin(*) 40 MG/0.4 ML SYR SUBCUT SCH (12:53)
[2018-03-21] MEDS: LORazepam TAB(*) 0.5 MG PO PRN (12:58)
[2018-03-21] MEDS: Neosporin TOPICAL OINT* 1 EA PACKET TOPICAL SCH ×2 (13:43→20:14)
--- NOTE | 2018-03-21 15:59 | PN ---
Subjective Date of Service: 03/21/18 Interval History: HOSPITALIST PROGRESS NOTE Patient seen and examined at bedside. Care reviewed and d/w Aurelia Griffin RN. Offers no new complaints, pain is unchanged. Family History: Unchanged from Admission Social History: Unchanged from Admission Past Medical History: Unchanged from Admission Objective Active Medications: Acetaminophen (Tylenol Tab*) 650 mg PO Q6H [facility] Last Admin: 03/21/18 12:53 Dose: 650 mg Celecoxib (Celebrex Cap*) 200 mg PO DAILY [facility] Last Admin: 03/21/18 08:05 Dose: 200 mg Enoxaparin Sodium (Lovenox(*)) 40 mg SUBCUT Q24H [facility] Last Admin: 03/21/18 12:53 Dose: 40 mg Ergocalciferol (Drisdol Cap*) 50,000 unit PO Tu [facility] Last Admin: 03/21/18 08:07 Dose: 50,000 unit Gabapentin (Neurontin Cap(*)) 100 mg PO TID [facility] Last Admin: 03/21/18 12:52 Dose: 100 mg Ibuprofen (Motrin Tab*) 400 mg PO BID PRN PRN Reason: PAIN Last Admin: 03/21/18 08:05 Dose: 400 mg Lamotrigine (Lamictal Tab(*)) 50 mg PO BEDTIME [facility] Last Admin: 03/20/18 21:00 Dose: 50 mg Lorazepam (Ativan Tab(*)) 0.5 mg PO DAILY PRN PRN Reason: dressing change Last Admin: 03/21/18 12:58 Dose: 0.5 mg Magnesium Oxide (Magox 400 Tab*) 400 mg PO DAILY [facility] Last Admin: 03/21/18 08:05 Dose: 400 mg Metoprolol Tartrate (Lopressor Tab*) 25 mg PO TID [facility] Last Admin: 03/21/18 12:52 Dose: 25 mg Neomycin/Polymyxin/Bacitracin (Neosporin Top Oint Packet*) 1 ea TOPICAL BID [facility] Last Admin: 03/21/18 13:43 Dose: 1 ea Ondansetron HCl (Zofran Tab*) 4 mg PO QID PRN PRN Reason: NAUSEA Oxycodone HCl (Roxycodone Tab*) 5 mg PO Q6H PRN PRN Reason: PAIN Last Admin: 03/21/18 10:40 Dose: 5 mg Oxycodone HCl (Oxycontin(*)) 15 mg PO BID [facility] Last Admin: 03/21/18 08:04 Dose: 15 mg Pantoprazole Sodium (Protonix Tab*) 40 mg PO DAILY [facility] Last Admin: 03/21/18 08:05 Dose: 40 mg Potassium Chloride (Klor Con Er Tab*) 40 meq PO DAILY [facility] Last Admin: 03/21/18 08:05 Dose: 40 meq Quetiapine Fumarate (Seroquel Tab*) 25 mg PO BEDTIME [facility] Last Admin: 03/20/18 21:01 Dose: 25 mg Sodium Chloride (Sodium Chloride Tab*) 2 gm PO DAILY [facility] Last Admin: 03/21/18 08:05 Dose: 2 gm Spironolactone (Aldactone Tab*) 100 mg PO DAILY [facility] Last Admin: 03/21/18 08:06 Dose: 100 mg Tramadol HCl (Ultram*) 50 mg PO Q6H PRN PRN Reason: PAIN Last Admin: 03/21/18 13:42 Dose: 50 mg Vital Signs - 8 hr 03/21/18 03/21/18 03/21/18 08:00 08:04 08:05 Temperature Pulse Rate Respiratory 16 16 16 Rate Blood Pressure (mmHg) O2 Sat by Pulse Oximetry 03/21/18 03/21/18 03/21/18 10:36 10:40 11:20 Temperature 97.1 F Pulse Rate 112 Respiratory 16 16 16 Rate Blood Pressure 103/65 (mmHg) O2 Sat by Pulse 99 Oximetry 03/21/18 03/21/18 03/21/18 12:52 12:58 13:42 Temperature Pulse Rate Respiratory 16 16 16 Rate Blood Pressure (mmHg) O2 Sat by Pulse Oximetry 03/21/18 15:26 Temperature Pulse Rate Respiratory 16 Rate Blood Pressure (mmHg) O2 Sat by Pulse Oximetry Oxygen Devices in Use Now: None Appearance: Young thin lady lying in bed in [facility]. Eyes: No Scleral Icterus Ears/Nose/Mouth/Throat: Mucous Membranes Moist, - - Poor dentition with many missing teeth Neck: Trachea Midline Extremities: No Edema, No Clubbing, Cyanosis Skin: - - CDI to LE Neurological: Alert and Oriented x 3, NL Muscle Strength and Tone - Nutrition: Malnutrition Diagnosis/Plan Malnutrition Assessment by Registered Dietitian: Malnutrition Assessment Clinical Characteristics Acute,Severe Malnutrition Assessment: - (at least) 16% wt loss x past ~ 3 months Criteria - < 75% estimated energy needs > 7 days - Mild-moderate temporal muscle wasting - Underweight status - BMI 17.4 Malnutrition Assessment: Will send Ensure Clear w/ meals: 240 kcals, 8 Interventions grams protein. Malnutrition Assessment: Goals 1. Intake will improve to replete muscle mass, maintain hydration, and prevent additional wt loss Result Diagrams: 03/18/18 22:55 03/18/18 22:55 Assess/Plan/Problems-Billing Assessment: Ms Dalton is a 28 yo F h/o polysubstance abuse moved from [place] in December suffered relapse and presented to [facility] with multisystem organ failure s/ p cardiac arrest/ROSV, intubation and transfer to [place] for left leg compartment syndrome where she spent 1 month before transfer to [facility] in January. Discharged to [facility] on 03/18/18 but was immediately sent to [facility] ED as there were no beds available at the retirement and her lack of mobility. - Patient Problems (1) Leg wound, left Comment: - Continue current regimen. - Wound care consult appreciated - her right thigh tunneled wound is improving, tunnel now measures 4 cm. Other wounds are healing well too. (2) Pain Comment: - Continue pain regimen: tylenol standing oxycodone sr 15 bid Oxycodone 5 mg q6h motrin q6hr tramadol BID (3) Severe protein-calorie malnutrition Comment: - Patient has lost 16% of her weight over the past 3 months, with < 75 % estimated energy needs > 7 days, mild-moderate temporal muscle wasting, and underweight status with BMI 17.4. - Dietitian input appreciated. (4) Bipolar disorder Comment: - Continue lamictal, seroquel. (5) DVT prophylaxis Comment: - Lovenox. Status and Disposition: OBV. Patient cannot function independently in a homeless retirement due to her difficulty with ambulation. States family is not welcoming her at this time. CM to pursue SNF or other safe placements.
[2018-03-21] MEDS: lamoTRIgine TAB(*) 25 MG PO SCH (20:14)
[2018-03-21] MEDS: QUEtiapine TAB* 25 MG PO SCH (20:15)
[2018-03-22] MEDS: traMADol TAB* 50 MG PO PRN ×3 (02:19→15:44)
[2018-03-22] MEDS: Acetaminophen TAB* 325 MG PO SCH ×2 (07:00→12:22)
[2018-03-22] MEDS: oxyCODONE TAB* 5 MG TAB PO PRN ×2 (07:00→12:48)
[2018-03-22] MEDS: Spironolactone TAB* 25 MG PO SCH (08:04)
[2018-03-22] MEDS: Sodium Chloride TAB* 1 GM PO SCH (08:04)
[2018-03-22] MEDS: celeCOXIB CAP* 200 MG PO SCH (08:05)
[2018-03-22] MEDS: oxyCODONE SR TAB(*) 15 MG TAB.SR PO SCH (08:05)
[2018-03-22] MEDS: Magnesium Oxide TAB* 400 MG PO SCH (08:05)
[2018-03-22] MEDS: Gabapentin CAP(*) 100 MG PO SCH ×2 (08:05→12:22)
[2018-03-22] MEDS: Pantoprazole TAB * 40 MG TAB PO SCH (08:05)
[2018-03-22] MEDS: Potassium Chlor TAB* 20 MEQ TAB.ER PO SCH (08:05)
[2018-03-22] MEDS: Metoprolol Tartrate TAB* 25 MG PO SCH ×2 (08:06→12:33)
[2018-03-22] MEDS: LORazepam TAB(*) 0.5 MG PO PRN (09:53)
[2018-03-22] MEDS: Neosporin TOPICAL OINT* 1 EA PACKET TOPICAL SCH (11:09)
[2018-03-22 11:57] VITALS: BP 117/73
[2018-03-22] MEDS: Enoxaparin(*) 40 MG/0.4 ML SYR SUBCUT SCH (12:23)
--- NOTE | 2018-03-22 15:00 | CONSULT ---
Consult Consult: WOUND CONSULT NOTE Date of Service: 03/22/18 History: Interval History: Past Medical/Family/Social History: Family History: Unchanged from Admission Social History: Unchanged from Admission Past Medical History: Unchanged from Admission Objective: Active Medications: Medications Celecoxib (Celebrex Cap*) 200 mg PO DAILY [facility] Last Admin: 03/22/18 08:05 Dose: 200 mg Lamotrigine (Lamictal Tab(*)) 50 mg PO BEDTIME [facility] Last Admin: 03/21/18 20:14 Dose: 50 mg Neomycin/Polymyxin/Bacitracin (Neosporin Top Oint Packet*) 1 ea TOPICAL BID [facility] Last Admin: 03/22/18 11:09 Dose: 1 ea Acetaminophen (Tylenol Tab*) 650 mg PO Q6H [facility] Last Admin: 03/22/18 12:22 Dose: 650 mg Enoxaparin Sodium (Lovenox(*)) 40 mg SUBCUT Q24H [facility] Last Admin: 03/22/18 12:23 Dose: 40 mg Ergocalciferol (Drisdol Cap*) 50,000 unit PO Tu [facility] Last Admin: 03/21/18 08:07 Dose: 50,000 unit Gabapentin (Neurontin Cap(*)) 100 mg PO TID [facility] Last Admin: 03/22/18 12:22 Dose: 100 mg Ibuprofen (Motrin Tab*) 400 mg PO BID PRN PRN Reason: PAIN Last Admin: 03/21/18 08:05 Dose: 400 mg Lorazepam (Ativan Tab(*)) 0.5 mg PO DAILY PRN PRN Reason: dressing change Last Admin: 03/22/18 09:53 Dose: 0.5 mg Magnesium Oxide (Magox 400 Tab*) 400 mg PO DAILY [facility] Last Admin: 03/22/18 08:05 Dose: 400 mg Metoprolol Tartrate (Lopressor Tab*) 25 mg PO TID [facility] Last Admin: 03/22/18 12:33 Dose: Not Given Ondansetron HCl (Zofran Tab*) 4 mg PO QID PRN PRN Reason: NAUSEA Last Admin: 03/22/18 12:09 Dose: 4 mg Oxycodone HCl (Roxycodone Tab*) 5 mg PO Q6H PRN PRN Reason: PAIN Last Admin: 03/22/18 12:48 Dose: 5 mg Oxycodone HCl (Oxycontin(*)) 15 mg PO BID [facility] Last Admin: 03/22/18 08:05 Dose: 15 mg Pantoprazole Sodium (Protonix Tab*) 40 mg PO DAILY [facility] Last Admin: 03/22/18 08:05 Dose: 40 mg Potassium Chloride (Klor Con Er Tab*) 40 meq PO DAILY [facility] Last Admin: 03/22/18 08:05 Dose: 40 meq Quetiapine Fumarate (Seroquel Tab*) 25 mg PO BEDTIME [facility] Last Admin: 03/21/18 20:15 Dose: 25 mg Sodium Chloride (Sodium Chloride Tab*) 2 gm PO DAILY [facility] Last Admin: 03/22/18 08:04 Dose: 2 gm Spironolactone (Aldactone Tab*) 100 mg PO DAILY [facility] Last Admin: 03/22/18 08:04 Dose: 100 mg Tramadol HCl (Ultram*) 50 mg PO Q6H PRN PRN Reason: PAIN Last Admin: 03/22/18 09:53 Dose: 50 mg Vital Signs: Selected Entries 03/22/18 03/22/18 07:30 11:41 Temperature 98.7 F 97.2 F Temperature Oral Temporal Artery Source Scan Pulse Rate 101 120 Respiratory 18 18 Rate Blood Pressure 100/55 117/73 (mmHg) Blood Pressure 65 83 Mean O2 Sat by Pulse 100 98 Oximetry Patient on Room Yes Yes Air Exam: General: Neuro: Skin: Left lateral lower leg - Left lateral thigh - Left medial upper thigh - Data: Labs: Laboratory Tests 03/18/18 03/18/18 22:55 22:55 WBC 5.4 Hgb 11.7 L Hct 35 Plt Count 299 Sodium 136 Potassium 4.6 Chloride 103 Carbon Dioxide 26 BUN 11 Creatinine 0.49 L Est GFR (Non-Af Amer) 149.3 Glucose 80 C-Reactive Protein 2.31 Total Protein 7.5 Albumin 4.7 Assessment/Plan: 1. 2. VTE PPX: Diet: Code Status: Disposition: Time Spent: Attending: Dr. Courtney Holland MD
--- NOTE | 2018-03-22 22:43 | DS ---
CC: Dr. Catarina Samayoa * DISCHARGE SUMMARY: DATE OF ADMISSION: 03/19/18. DATE OF DISCHARGE: 03/22/18. PRIMARY CARE PROVIDER: Dr. Catarina Samayoa. DISCHARGE DIAGNOSES: 1. Left compartment syndrome in the left leg, status post fasciotomy with residual wounds. 2. Hypertension. 3. Asthma. 4. Bipolar disorder. 5. Severe protein-calorie malnutrition. MEDICATION LIST: 1. Celecoxib 200 mg p.o. daily. 2. Compazine 10 mg p.o. q.6 hours p.r.n. nausea and vomiting. 3. Ergocalciferol 50,000 units p.o. on . 4. Gabapentin 100 mg p.o. t.i.d. 5. Ibuprofen 500 mg p.o. q.6 hours p.r.n. pain. 6. Lamictal 50 mg p.o. at bedtime. 7. Lorazepam 0.5 mg p.o. daily p.r.n. anxiety. 8. Milk of magnesia 30 mL p.o. at bedtime as needed for constipation. 9. Magnesium oxide 500 mg p.o. daily. 10. Metoprolol tartrate 25 mg p.o. b.i.d. 11. OxyContin 10 mg p.o. q.12 hours, MDD 20 mg. 12. Oxycodone 5 mg p.o. q.6 hours p.r.n., MDD 4 tablets. The patient received prescription for 30 tablets, no refills. 13. Pantoprazole 40 mg p.o. daily. 14. Potassium chloride 40 mEq p.o. daily. 15. Seroquel 12.5 mg p.o. daily. 16. Sodium chloride 2 g p.o. daily. 17. Spironolactone 100 mg p.o. daily. 18. Tramadol 25 mg p.o. q.8 hours p.r.n. pain. 19. Zofran 4 mg p.o. 4 times daily p.r.n. DRESSING ORDERS: For the left groin wound, the patient should have silver antimicrobial wound dressing packing every other day, cover with oil emulsion and wrap with Kerlix. For the other wounds, she will apply antibiotic ointment and cover with oil emulsion/Kerlix dressing every day. HOSPITAL COURSE: Ms. Dalton is a 28-year-old lady with a complex past medical history that goes back to December 2017. She presented to [facility] at that time with left lower extremity cellulitis and multisystem organ failure. The patient does have a prior history of IV drug use (heroin), but is reportedly clean since 2016. She presented to the emergency room in severe sepsis with tachycardia, hypertension, hypothermia, troponin elevation. In the emergency room after returning from a CT scan, had decreased pulse, bradycardia, received CPR for 3 minutes and was intubated for airway protection. At that point, ICU attending recommended transfer to a higher level of care and she went to [facility]. She has been admitted for this whole time. She had fasciotomy of her left lower extremity and after she improved, she was transferred to a [facility] in [place]. On 03/18/18, she was discharged from the rehab facility after being there since 01/26/18 and at that point, she was homeless and was discharged to a homeless retirement in [place]. Unfortunately, the rescue mission could not accept her as they felt they could not provide the support she needed, so she was sent to the emergency room and readmitted, so a safe discharge plan could be provided. While in the hospital, the patient was seen in consultation by wound care and the recommendation was for left groin wound dressing with silver antimicrobial wound dressing packing covered with oil emulsion dressing and Kerlix every other day and on her other wounds that are superficial and almost healed, the recommendation is to apply antibiotic ointment, cover with oil emulsion dressing and Kerlix. The major issue during the patient's hospital stay was pain that despite taking multiple pain medications, she states that her pain never goes below a 7 and has been this way for a month. Initially, the plan was to try and place the patient in a senior living facility, but today her family decided that they could take her home, so the plan is for her to be discharged home today, to follow up with Dr. Catarina Samayoa on 03/29/18 and also at the wound clinic next week. Please keep in mind that the patient's medication list will need to be adjusted. She is on multiple anti-inflammatory drugs and opioids and this will need to be further adjusted. She is also on sodium tablets and diuretics and at this point , her sodium is normal too. We did decrease her metoprolol from 25 mg p.o. t.i.d. to 25 mg p.o. b.i.d. as her blood pressure would not support 3 doses a day. She will need close followup as outpatient to continue to adjust her medication regimen. PHYSICAL EXAMINATION: Vital Signs: Temperature 97.2, heart rate 88, respiratory rate 16, oxygen saturation 98% on room air, blood pressure 117/73. General: The patient is a young thin lady lying in bed, in no acute distress. HEENT: Moist mucous membranes. Poor dentition. Extremities: The patient has multiple clean dressings to left lower extremity. Neuro: She is alert and oriented x3, able to move all 4 extremities. DIET: Regular diet. ACTIVITY: As tolerated. DISPOSITION: To home. STATUS WHILE IN THE HOSPITAL: Observation. CONDITION: Fair. Please keep in mind this is a summarized version of this patient's hospital stay. If you need more information, please feel free to call me at [phone] or please obtain the full medical records. TIME SPENT: Approximately 45 minutes were spent to complete this discharge. [id number] #: [id number] LUZ ELENA
== END 2018-03-22 16:00 | disposition home or self-care (01) ==
LOC: ED 17:27 → MED 03-19 00:10
PROVIDERS: ADMIT Internal Medicine; ATTEND Internal Medicine
DX: T79.A22S Traumatic compartment syndrome of left lower extremity, sequela (principal); Z74.09 Other reduced mobility; Z87.891 Personal history of nicotine dependence; E43 Unspecified severe protein-calorie malnutrition; F31.9 Bipolar disorder, unspecified; J45.909 Unspecified asthma, uncomplicated; Z98.890 Other specified postprocedural states; I10 Essential (primary) hypertension; X58.XXXS Exposure to other specified factors, sequela; Z87.39 Personal history of other diseases of the musculoskeletal system and connective tissue
CPT/HCPCS: 36415; 80053; 84702; 85025; 86140; 87641; 96372; 99283; A9270-GY; G0378; J1644; J1650

== ENCOUNTER → 2018-09-12 07:32 | Day surgery (SDC) | payer OTHER ==
[~2018-09-12 07:32] MED LIST: Acetaminophen TAB* 325 MG ONE; Acetaminophen TAB* 325 MG PO PRN; Buffered Lidocaine 1% SYRIN* 1 ML/SYRINGE INTRADERM ONE; Bupivacaine 0.5%* 50 ML MDV VIAL ONE; Clindamycin 900 MG IVPREMIX(* 900 MG/50 ML SDV IV ONE; DiMENhydriNATE IV* 50 MG/ML VIAL IV PUSH PRN; Famotidine IV* 10 MG/ML 2 ML (20 mg) IV ONE; Famotidine IV* 10 MG/ML 2 ML (20 mg) ONE; Ketorolac INJ* 30 MG/ML 1 ML VIAL ONE; Lactated Ringers 1000 ML Bag* 1,000 ML IV SCH; Lidocaine 2% PF * 5 ML VIAL ONE; Midazolam* 1 MG/ML 5 ML VIAL (5 MG) ONE; Naloxone* 0.4 MG/ML 1 ML VIAL IV PRN; Ondansetron INJ* 2 MG/ML VIAL ONE; Propofol* 10 MG/ML 20 ML BTL ONE
[2018-09-12 09:17] LABS: INR 0.97 (0.82-1.09)
[2018-09-12 12:31] VITALS: BP 104/65
--- NOTE | 2018-09-12 14:17 | OP ---
Operative Report - Blank - Operative Report Date of Operation: 09/12/18 Note: PATIENT: Ev Dalton DATE OF : 1990 DATE OF SURGERY: 09/12/2018 SURGEON: Stas Kelly MD HISTORICAL SOCIETY DIRECTOR: SABINO Patel, whos assistance was necessary for positioning, retraction, help with instrumentation, and closure. ANESTHESIOLOGIST: Dr. Pacheco PREOPERATIVE DIAGNOSIS: Left Achilles contracture POSTOPERATIVE DIAGNOSIS: Left Achilles contracture, posterior ankle contracture. OPERATION: 1. Left Achilles tendon lengthening 2. Left leg posterior compartment fasciotomy 3. Left ankle and subtalar joint posterior arthrotomies and capsular releases ANESTHESIA: Spinal IMPLANTS: none TOURNIQUET TIME: Less than 1 hour minutes with a well-padded thigh tourniquet at 250mmHg SPECIMENS: none ESTIMATED BLOOD LOSS: minimal COMPLICATIONS: none STATUS: Stable from the operating room to the recovery room and then home. INDICATIONS FOR PROCEDURE: Ev sustained left thigh and lower leg compartment syndrome and is s/p fasciotomies. She developed a left ankle equinus contracture which has made ambulation very difficult. Both operative and non operative treatment alternatives were reviewed. Further, the nature and risks of surgery were reviewed in careful detail in the office as well as in the preoperative holding area. Our discussions regarding the risks of surgery included, but were not limited to, infection, wound problems, nerve injury, neuroma, RSD, persistent symptoms, blood clot, rupture, failure of the surgery, and even the remote chance of catastrophic complication. DESCRIPTION OF PROCEDURE: The patient was seen in the preoperative holding unit and informed written consent was obtained. The appropriate extremity was marked. The patient was then brought to the operating room and carefully positioned on the operating room table in the prone position. Anesthesia was induced. All bony prominences were padded with great care. A well-padded thigh tourniquet was placed. A chlorhexidine based pre-scrub was performed followed by a chloraprep prep and drape in standard sterile fashion. A surgical safety pause was then conducted in which we confirmed the appropriate patient, extremity, planned procedure, availability of equipment, indication and administration of prophylactic antibiotics, and DVT prophylaxis in the form of a compression boot on the non- surgical extremity. I began with an exam under anesthesia and she was 60 degrees shy of neutral with ankle dorsflexion. Exsanguination of the extremity was performed and the tourniquet was inflated. I began by utilizing a longitudinal incision overlying non-insertional Achilles tendon. I then carefully dissected down to the peritenon layer, which was opened in line with the skin incision. I exposed the Achilles tendon and performed the cuts for a Z-lengthening. This provided good improvement in dorsiflexion, but she still had about a 10 equinus contracture. Therefore, decided to move forward with the posterior compartment fasciotomy and release of the posterior ankle and subtalar joints. A deep posterior compartment fasciotomy was performed with metzenbaum scissors. I then carefully dissected with the Metzenbaum scissors to the posterior aspect of the ankle and subtalar joints. There is a large amount of scar tissue formed in this area. I carefully found the FHL tendon and retracted this, along with the neurovascular bundle, medially. I then used a 15 blade scalpel to release the posterior aspect of the ankle joint capsule and subtalar joint capsule. I was then able to bring the ankle to 5 of dorsiflexion. The Achilles tendon was then repaired in a lengthened position with #2 Fiberwire. The wound was then copiously irrigated and meticulously closed in layers utilizing 3-0 Monocryl for the paratenon and subdermal layer, and 3-0 nylon for the skin. A sterile dressing was then applied followed by a splint with the ankle in a neutral position. The patient was then awakened from anesthesia and transferred to the recovery room in stable condition. There were no complications. All needle and sponge counts were correct at the end of the case. ATTESTATION: I attest I was present and scrubbed and performed the critical portions of the procedure myself. POSTOPERATIVE PLAN: The patient will follow-up in 2 weeks for likely suture removal. We will plan on 6 weeks total in the cast, nonweightbearing.
== END | disposition home or self-care (01) ==
LOC: OR 07:32
PROVIDERS: ATTEND Orthopaedic Surgery
PROC: 0JBP0ZZ Excision of Left Lower Leg Subcutaneous Tissue and Fascia, Open Approach (ICD-10-PCS; 2018-09-12)
PROC: 0SNG0ZZ Release Left Ankle Joint, Open Approach (ICD-10-PCS; 2018-09-12)
PROC: 0L8P0ZZ Division of Left Lower Leg Tendon, Open Approach (ICD-10-PCS; 2018-09-12)
PROC: 0L8T0ZZ Division of Left Ankle Tendon, Open Approach (ICD-10-PCS; principal; 2018-09-12 09:15)
DX: M67.02 Short Achilles tendon (acquired), left ankle (principal); M25.572 Pain in left ankle and joints of left foot; I10 Essential (primary) hypertension; J45.909 Unspecified asthma, uncomplicated; F32.9 Major depressive disorder, single episode, unspecified; F41.9 Anxiety disorder, unspecified; Z88.0 Allergy status to penicillin
CPT/HCPCS: 36415; 62323; 81025; 85610; A9270-GY; J1885; J2250; J2405; J2704; J3490